=== PATIENT | female | born 1955 | race Caucasian/White ===

== ENCOUNTER 2019-05-25 05:11 | Inpatient (IN) ==
[2019-05-25] MEDS ORDERED: IPRATROPIUM/ALBUTEROL 3 ML AMPUL.NEB NEB ONE ×2 (05:19→08:20)
[2019-05-25] MEDS ORDERED: methylPREDNISolone SOD SUCC 125 MG/2 ML VIAL IV ONE (05:51)
--- NOTE | 2019-05-25 05:52 | XRay Report ---
CLINICAL INFORMATION: sob and fever COMPARISON: 06/20/2014 FINDINGS: Heart size, mediastinum and pulmonary vessels are normal. COPD changes are stable and there are no infiltrates or new pulmonary abnormalities. No effusions IMPRESSION: Stable COPD changes. Interpreted and Authenticated by: Esa Parker 05/25/19
[2019-05-25] MEDS ORDERED: AZITHROMYCIN 500 MG in DEXTROSE 5% IN WATER 250 ML IV ONE (05:53)
[2019-05-25] MEDS ORDERED: cefTRIAXone 1 GM VIAL IV ONE (05:53)
[2019-05-25] MEDS ORDERED: ALBUTEROL SULFATE 5 MG/ML NEB SOLUTION BOTTLE NEB ONE (05:59)
[2019-05-25 06:15] LABS: Hematocrit 32.7 % (36.0-48.0); Hemoglobin 9.8 g/dL (12.0-15.0); Mean Cell Volume 71.4 fL (80.0-100.0); Mean Corpuscular HGB Conc 29.8 g/dL (31.0-36.0); Platelet Count 375 K/mcL (140-440); RBC 4.58 M/mcL (4.00-5.20); Red Cell Distribution Width 19.6 % (11.5-14.5); WBC 11.3 K/mcL (4.5-11.0)
[2019-05-25] MEDS: LACTATED RINGERS 1,000 ML IV SCH ×2 (06:19→12:35)
--- NOTE | 2019-05-25 06:29 | Emergency Department Note ---
SOB HPI - General Chief Complaint: Shortness of Breath/Dyspnea Stated Complaint: sob Time Seen by Provider: 05/25/19 05:51 Source: patient Mode of arrival: EMS Limitations: no limitations - History of Present Illness This patient has a history of COPD and started having wheezing and shortness of breath during the night. She does have a low-grade temperature and feels warm. Has not had much cough. - Related Data Previous Rx's Medication Instructions Recorded Azithromycin [Zithromax] 250 mg PO DAILY #4 tab 05/25/19 predniSONE [Prednisone] 20 mg PO DAILY #23 tab 05/25/19 Allergies Allergy/AdvReac Type Severity Reaction Status Date / Time codeine [CODEINE] Allergy Unknown CANT BREATH Verified 05/25/19 05:22 starch Allergy Anaphylaxis Verified 05/25/19 05:22 Review of Systems All systems ED: reviewed and negative except as stated. Past Medical History - Past Medical History Medical history: Reports: COPD - Social History smoking status: Current every day smoker Physical Exam Limitations: no limitations General appearance: alert Head: atraumatic Eye: Present: normal appearance ENT: Present: normal exam Neck: Present: normal inspection Chest: Present: normal inspection Respiratory: Present: respiratory distress, wheezes, prolonged expiratory phase Cardiovascular: Present: regular rate, normal rhythm, normal heart sounds Abdominal: Present: soft. Absent: distention, tenderness Neurological: Present: alert Psychiatric: Present: normal affect Skin: Present: warm, dry Course Vital Signs Pulse Rate 115 H 05/25/19 05:12 Respiratory Rate 24 H 05/25/19 05:12 Pulse Oximetry (%) 93 05/25/19 05:12 Temperature 98.2 F 05/25/19 07:36 Pulse Rate 108 H 05/25/19 08:15 Respiratory Rate 25 H 05/25/19 08:31 Blood Pressure 151/80 05/25/19 08:31 Pulse Oximetry (%) 89 L 05/25/19 08:15 Shortness of Breath/Dyspnea - [facility] Narrative Medical decision making narrative: This patient is doing better after a heart neb and Solu-Medrol. Chest x-ray did not show pneumonia. She was treated with a Zithromax and Rocephin. This patient continues to be symptomatic short of breath with wheezing despite multiple treatments with O2 sats in the high 80s. I think she would benefit from admission of the hospital and will try to arrange that with Dr. Matute. - Lab Data Lab results reviewed: Yes I reviewed the patient's lab results. Result diagrams: 05/25/19 05:30 05/25/19 05:30 Lab Results 05/25/19 05/25/19 05/25/19 Range/Units 05:30 05:30 06:10 WBC 11.3 H (4.5-11.0) K/mcL RBC 4.58 (4.00-5.20) M/mcL Hgb 9.8 L (12.0-15.0) g/dL Hct 32.7 L (36.0-48.0) % MCV 71.4 L (80.0-100.0) fL MCH 21.3 L (26.0-34.0) pg MCHC 29.8 L (31.0-36.0) g/dL RDW 19.6 H (11.5-14.5) % Plt Count 375 (140-440) K/mcL MPV 7.0 L (7.4-10.4) fL Total Counted 100 Seg Neutrophils % 74 (38-78) % Band Neutrophils % Not Reportable Lymphocytes % 18 (15-49) % Monocytes % (Manual) 8 (1-12) % Platelet Estimate Normal (NORMAL) RBC Morphology Abnorm A (NORMAL) Polychromasia 1+ A (NONE SEEN) Hypochromasia 1+ A (NONE SEEN) Anisocytosis 1+ A (NONE SEEN) Microcytosis 2+ A (NONE SEEN) Ovalocytes 2+ A (NONE SEEN) RBC Fragments Rare A (NONE SEEN) VBG Lactic Acid 1.1 (0.5-2.0) mmol/L Sodium 143 (133-145) mmol/L Potassium 4.1 (3.3-5.1) mmol/L Chloride 97 (96-108) mmol/L Carbon Dioxide 35 H (22-30) mmol/L Anion Gap 11.0 (8-16) BUN 11 (8-23) mg/dl Creatinine 0.8 (0.6-1.1) mg/dl GFR Calculation 78 Glucose 103 (70-105) mg/dL Calcium 9.2 (8.6-10.4) mg/dl Total Bilirubin 0.3 (0.0-1.0) mg/dL AST 19 (0-37) U/l ALT 16 (0-40) U/l Alkaline Phosphatase 68 (39-117) U/L Total Protein 6.8 (5.9-8.4) gm/dL Albumin 4.1 (3.2-5.2) gm/dL Globulin 2.7 (2.2-3.7) gm/dL Albumin/Globulin Ratio 1.5 (1.0-2.3) - Radiology Data Radiology results reviewed: Yes I reviewed the patient's radiology results. Disposition Pt seen by [employer]/PA only: No Clinical Impression: Acute exacerbation of chronic obstructive airways disease Disposition: Xfer As Inpt ([facility]) Condition: Good Instructions: Chronic Obstructive Pulmonary Disease (ED) Prescriptions: predniSONE [Prednisone] 20 mg PO DAILY #23 tab Transmission Status: Received by [facility] Azithromycin [Zithromax] 250 mg PO DAILY #4 tab Transmission Status: Received by [facility] Referrals: Heavenly Enriquez MD [Primary Care Provider] - Time of Disposition: 08:46
[2019-05-25 06:32] LABS: ALT/SGPT 16 U/l (0-40); AST/SGOT 19 U/l (0-37); Albumin 4.1 gm/dL (3.2-5.2); Albumin/Globulin Ratio 1.5 (1.0-2.3); Alkaline Phosphatase 68 U/L (39-117); Bilirubin,Total 0.3 mg/dL (0.0-1.0); Blood Urea Nitrogen 11 mg/dl (8-23); Calcium 9.2 mg/dl (8.6-10.4); Carbon Dioxide 35 mmol/L (22-30); Chloride 97 mmol/L (96-108); Globulin 2.7 gm/dL (2.2-3.7); Glomerular Filtration Rate 78; Glucose 103 mg/dL (70-105)
[2019-05-25] MEDS ORDERED: ONDANSETRON 4 MG/2 ML VIAL IV ONE (06:42)
[2019-05-25 06:50] LABS: Anisocytosis 1+ (NONE SEEN); Hypochromasia 1+ (NONE SEEN); Lymphocytes % 18 % (15-49); Microcytosis 2+ (NONE SEEN); Monocytes % (Manual) 8 % (1-12); Ovalocytes 2+ (NONE SEEN); Platelet Estimate NORMAL (NORMAL); Polychromasia 1+ (NONE SEEN); RBC Fragments RARE (NONE SEEN); RBC Morphology ABNORM (NORMAL); Segmented Neutrophils % 74 % (38-78)
[2019-05-25] MEDS ORDERED: ACETAMINOPHEN 325 MG TABLET PO ONE (09:52)
--- NOTE | 2019-05-25 10:16 | Emergency Department Note ---
SOB HPI - General Chief Complaint: Shortness of Breath/Dyspnea Stated Complaint: sob Time Seen by Provider: 05/25/19 05:51 Source: patient Mode of arrival: EMS Limitations: no limitations - History of Present Illness See history and physical dictated by Dr. Mora, and I am seeing patient after change in shift. Probable admission for COPD exacerbation. I spoke with patient's daughter Triston, also. Patient has received Rocephin, Zithromax Solu- Medrol DuoNeb albuterol 10 mg, a third nebulizer treatment with DuoNeb. Venous blood gases include pH is 7.40 PCO2 62, PO2 76. She is still wheezing moderately throughout all lung horton. She is on 4 L running 90 to 92%. She has a low-grade temperature. She remains tachycardic in the 100-120 bpm range. Triston reports that her fever was 100.4 last evening and had some during the day yesterday. Patient lives with her at home. She has fairly good mentation. She does ambulate on her own but uses a walker for longer distance. She was down as low as 82 pounds and has recently gone back up to 98 with eating potatoes. She has a history of COPD. Chest x-ray demonstrates stable COPD. - Related Data Home Medications Medication Instructions Recorded Confirmed Albuterol Sulfate [Ventolin] 2.5 mg NEB Q4-6HP 05/25/19 05/25/19 Aspirin [Adult Aspirin Regimen] 81 mg PO DAILY 05/25/19 05/25/19 Benazepril [Lotensin] 20 mg PO DAILY 05/25/19 05/25/19 DULoxetine [Cymbalta] 90 mg PO DAILY 05/25/19 05/25/19 Fluticasone/Salmeterol [Advair 1 puff INH BID 05/25/19 05/25/19 250-50 Diskus] Furosemide [Lasix] 20 mg PO DAILY 05/25/19 05/25/19 Gabapentin [Neurontin] 800 mg PO TID 05/25/19 05/25/19 HYDROcodone/APAP 10/325MG [[place] 1 tab PO Q6H PRN 05/25/19 05/25/19 10-325Mg] Montelukast [Singular] 10 mg PO DAILY 05/25/19 05/25/19 Omeprazole [PriLOSEC] 20 mg PO ACB 05/25/19 05/25/19 Potassium Chloride [Kdur] 10 meq PO DAILY 05/25/19 05/25/19 Tiotropium [place] [Spiriva] 18 mcg INH DAILY 05/25/19 05/25/19 Allergies Allergy/AdvReac Type Severity Reaction Status Date / Time codeine [CODEINE] Allergy Unknown CANT BREATH Verified 05/25/19 05:22 starch Allergy Anaphylaxis Verified 05/25/19 05:22 Past Medical History - Past Medical History Medical history: Reports: COPD - Social History smoking status: Current every day smoker Physical Exam Limitations: no limitations General appearance: other (Sleeping but moving around easily and well.) Head: atraumatic, normocephalic Respiratory: Present: wheezes (Expiratory mild-moderate throughout all lung horton posteriorly.), prolonged expiratory phase. Absent: stridor Cardiovascular: Present: regular rate, tachycardia Extremities: Present: other (Somewhat atrophic.). Absent: pedal edema, preti bial edema Course Vital Signs Pulse Rate 115 H 05/25/19 05:12 Respiratory Rate 24 H 05/25/19 05:12 Pulse Oximetry (%) 93 05/25/19 05:12 Temperature 100.4 F H 05/25/19 09:57 Pulse Rate 103 H 05/25/19 10:16 Respiratory Rate 24 H 05/25/19 10:16 Blood Pressure 139/71 05/25/19 10:16 Pulse Oximetry (%) 94 05/25/19 10:16 Shortness of Breath/Dyspnea - MDM Narrative Medical decision making narrative: See history above. Patient continues with tachycardia, wheezing, low-grade temperature. Will need to be followed up additionally with monitoring and treatment inpatient. ABG demonstrates some CO2 retention. I discussed these results with Dr. Matute. 10:52 AM - I spoke with Dr. Matute, hospitalist, who kindly accepts this patient for additional treatment and follow-up inpatient for a COPD exacerbation. Procalcitonin added. - Lab Data Lab results reviewed: Yes I reviewed the patient's lab results. Result diagrams: 05/25/19 05:30 05/25/19 05:30 Lab Results 05/25/19 05/25/19 05/25/19 Range/Units 05:30 05:30 06:10 WBC 11.3 H (4.5-11.0) K/mcL RBC 4.58 (4.00-5.20) M/mcL Hgb 9.8 L (12.0-15.0) g/dL Hct 32.7 L (36.0-48.0) % MCV 71.4 L (80.0-100.0) fL MCH 21.3 L (26.0-34.0) pg MCHC 29.8 L (31.0-36.0) g/dL RDW 19.6 H (11.5-14.5) % Plt Count 375 (140-440) K/mcL MPV 7.0 L (7.4-10.4) fL Total Counted 100 Seg Neutrophils % 74 (38-78) % Band Neutrophils % Not Reportable Lymphocytes % 18 (15-49) % Monocytes % (Manual) 8 (1-12) % Platelet Estimate Normal (NORMAL) RBC Morphology Abnorm A (NORMAL) Polychromasia 1+ A (NONE SEEN) Hypochromasia 1+ A (NONE SEEN) Anisocytosis 1+ A (NONE SEEN) Microcytosis 2+ A (NONE SEEN) Ovalocytes 2+ A (NONE SEEN) RBC Fragments Rare A (NONE SEEN) VBG Lactic Acid 1.1 (0.5-2.0) mmol/L Sodium 143 (133-145) mmol/L Potassium 4.1 (3.3-5.1) mmol/L Chloride 97 (96-108) mmol/L Carbon Dioxide 35 H (22-30) mmol/L Anion Gap 11.0 (8-16) BUN 11 (8-23) mg/dl Creatinine 0.8 (0.6-1.1) mg/dl GFR Calculation 78 Glucose 103 (70-105) mg/dL Calcium 9.2 (8.6-10.4) mg/dl Total Bilirubin 0.3 (0.0-1.0) mg/dL AST 19 (0-37) U/l ALT 16 (0-40) U/l Alkaline Phosphatase 68 (39-117) U/L Total Protein 6.8 (5.9-8.4) gm/dL Albumin 4.1 (3.2-5.2) gm/dL Globulin 2.7 (2.2-3.7) gm/dL Albumin/Globulin Ratio 1.5 (1.0-2.3) - Radiology Data Radiology results reviewed: Yes I reviewed the patient's radiology results. - EKG Data EKG attestation: Yes There are no EKG findings of acute coronary syndrome, Yes This EKG will be read by sand slinger EKG results narrative: Possible previous anterior infarct. Disposition Pt seen by [employer]/PA only: No Clinical Impression: Acute exacerbation of chronic obstructive airways disease, Hypochromic microcytic anemia, Cachexia Fever Qualifiers: Fever type: due to other condition Qualified Code(s): R50.81 - Fever presenting with conditions classified elsewhere Disposition: Xfer As Inpt ([facility]) Condition: Good Instructions: Chronic Obstructive Pulmonary Disease (ED) Prescriptions: predniSONE [Prednisone] 20 mg PO DAILY #23 tab Transmission Status: Received by [facility] Azithromycin [Zithromax] 250 mg PO DAILY #4 tab Transmission Status: Received by [facility] Referrals: Heavenly Enriquez MD [Primary Care Provider] -
[2019-05-25] MEDS ORDERED: HYDROcodone/APAP 10/325MG TABLET PO PRN (10:56)
[2019-05-25] MEDS ORDERED: MAGNESIUM HYDROXIDE 30 ML ORAL.SUSP PO PRN (12:28)
[2019-05-25] MEDS ORDERED: ACETAMINOPHEN 650 MG/65 ML BOTTLE IV PRN (12:28)
[2019-05-25] MEDS ORDERED: ONDANSETRON 4 MG/2 ML VIAL IV PRN (12:28)
[2019-05-25] MEDS ORDERED: traZODone HCL 50 MG TABLET PO PRN (12:28)
[2019-05-25] MEDS ORDERED: MAGNESIUM SULFATE 2 GM/50 ML BAG IV PRN (12:28)
[2019-05-25] MEDS ORDERED: ACETAMINOPHEN 325 MG TABLET PO PRN (12:28)
[2019-05-25] MEDS ORDERED: POTASSIUM CHLORIDE 20 MEQ PACKET PO PRN (12:28)
[2019-05-25] MEDS: methylPREDNISolone SOD SUCC 125 MG/2 ML VIAL IV SCH ×3 (12:52→23:34)
[2019-05-25] MEDS ORDERED: cefTRIAXone 1 GM VIAL IV SCH (13:00)
[2019-05-25] MEDS: GABAPENTIN 400 MG CAPSULE PO SCH ×2 (13:04→20:38)
[2019-05-25] MEDS: 0.9 % SODIUM CHLORIDE 1,000 ML IV SCH (13:37)
[2019-05-25] MEDS: LEVOFLOXACIN 750 MG/150 ML BAG IV SCH (13:37)
[2019-05-25] MEDS ORDERED: ALBUTEROL SULFATE 2.5 MG/3 ML NEBULIZER ONE (13:38)
[2019-05-25] MEDS ORDERED: ALBUTEROL SULFATE 2.5 MG/3 ML NEBULIZER NEB PRN (13:39)
--- NOTE | 2019-05-25 13:52 | Internal Med History&Physical ---
Medical - H&P: [facility] Patient information: Note initiated : 05/25/19 at 1:49 pm Service Date, if different from initiated Date: [] Patient: Martha Allison a 64 y/o F admitted on 05/25/19 for sob. Chief Complaint: [] Chief complaint: Shortness of breath History of present illness: Ms. Allison is a 64 year old F with a known history of advanced COPD actively smoking half a pack a day on home oxygen who presents with 3 days onset of worsening shortness of breath along with cough and breathing. Patient endorses to both daughters sick with bronchitis. She endorses to yellow-green productive sputum with increasing purulence. She was initially short of breath on exertion which now has progressed at rest with significant orthopnea. She endorses loss of appetite along with low-grade fever without chills. She denies headache, photophobia but endorses to generalized body ache and malaise. She is fairly malnourished with a BMI of 19.2. She endorses to history of allergy to starch but of late has been eating a lot of potatoes and [place] fries to gain weight. Initial work-up in the ER was consistent with COPD exacerbation with tachycardia, tachypnea and fever. Chest imaging was consistent with COPD but otherwise no acute process. She was started on Solu-Medrol/broncho-dilators. P atient however did not demonstrate improvement in her symptoms. Subsequently hospitalist service was consulted. At the time of evaluation patient is accompanied with 2 daughters Lynnette and Sandy. They were able to answer most of the questions. Patient is fairly short of breath sitting up in bed. She endorses to history as above. Her last COPD flare was a year ago for which she was hospitalized. She has been on mechanical ventilation few years ago for COPD flare. Intermittently she has had exacerbations that was treated outpatient on oral prednisone. Review of systems A 10 point review of system was performed and is negative except was discussed above Medical - H&P: PM Medical history: History of COPD oxygen dependent Active smoker Hypertension Neuropathy GERD Anxiety disorder Severe malnutrition Social history: Lives in [place] along with her daughter Actively smokes half pack \No history of alcohol s Smoking status: Current every day smoker Have you smoked in the last 12 months: Yes Time spent discussing smoking cessation with patient: 3 to 10 minutes Drug use: none Alcohol use: none Medical - H&P: Meds Home Medications Medication Instructions Recorded Confirmed Type Albuterol Sulfate [Ventolin] 2.5 mg NEB Q4-6HP 05/25/19 05/25/19 History Aspirin [Adult Aspirin Regimen] 81 mg PO DAILY 05/25/19 05/25/19 History Benazepril [Lotensin] 20 mg PO DAILY 05/25/19 05/25/19 History DULoxetine [Cymbalta] 90 mg PO DAILY 05/25/19 05/25/19 History Fluticasone/Salmeterol [Advair 1 puff INH BID 05/25/19 05/25/19 History 250-50 Diskus] Furosemide [Lasix] 20 mg PO DAILY 05/25/19 05/25/19 History Gabapentin [Neurontin] 800 mg PO TID 05/25/19 05/25/19 History HYDROcodone/APAP 10/325MG [[place] 1 tab PO Q6H PRN 05/25/19 05/25/19 History 10-325Mg] Montelukast [Singular] 10 mg PO DAILY 05/25/19 05/25/19 History Omeprazole [PriLOSEC] 20 mg PO ACB 05/25/19 05/25/19 History Potassium Chloride [Kdur] 10 meq PO DAILY 05/25/19 05/25/19 History Tiotropium [place] [Spiriva] 18 mcg INH DAILY 05/25/19 05/25/19 History Allergies Allergy/AdvReac Type Severity Reaction Status Date / Time codeine [CODEINE] Allergy Unknown CANT BREATH Verified 05/25/19 05:22 starch Allergy Anaphylaxis Verified 05/25/19 05:22 Medical - H&P: Exam - Constitutional Vitals: Temp Pulse Resp BP Pulse Ox 100.4 F H 100 H 22 139/71 94 05/25/19 12:31 05/25/19 13:41 05/25/19 13:41 05/25/19 12:31 05/25/19 12:31 General appearance: moderate distress Exam: Head normocephalic Oral cavity dry Temporal wasting No ear nose discharge Neck no lymphadenopathy S1-S2 regular rhythm ESM grade 1 Diminished breath sounds/expiratory rhonchi/barrel chest Scaphoid abdomen Nontender nondistended Lower extremity no sinus clubbing no joint swelling Skin no suspicious lesion Psych alert cooperative Neuro nonfocal Medical - H&P: Reslt - Labs CBC & Chem 7: 05/25/19 05:30 05/25/19 05:30 Labs: Short CBC 05/25/19 Range/Units 05:30 WBC 11.3 H (4.5-11.0) K/mcL Hgb 9.8 L (12.0-15.0) g/dL Hct 32.7 L (36.0-48.0) % Plt Count 375 (140-440) K/mcL BMP 05/25/19 05:30 Sodium 143 Potassium 4.1 Chloride 97 Carbon Dioxide 35 H BUN 11 Creatinine 0.8 Glucose 103 Calcium 9.2 Liver Function 05/25/19 Range/Units 05:30 Total Bilirubin 0.3 (0.0-1.0) mg/dL AST 19 (0-37) U/l ALT 16 (0-40) U/l Alkaline Phosphatase 68 (39-117) U/L Albumin 4.1 (3.2-5.2) gm/dL Medical - H&P: A/P (1) Acute exacerbation of chronic obstructive airways disease Current visit: Yes Status: Acute * Acute exacerbation of COPD-initiate IV steroids/bronchodilators/noninvasive ventilation as indicated. Continue pulmonary toilet * Hypoxic respiratory failure with dyspnea secondary to above. Continue supplemental oxygen/noninvasive ventilation if indicated * History of hypertension continue RAISA inhibitor * GERD continue PPI * Neuropathy continue gabapentin * Anxiety disorder continue duloxetine * Tobacco dependence start nicotine patch * Full code * Prophylaxis heparin Plan * Inpatient admission * COPD exacerbation management per guidelines, noninvasive ventilation if indicated * Prior medical condition management home meds * PT OT/nutrition support * Discharge planning
[2019-05-25] MEDS ORDERED: ASPIRIN 81 MG TAB.CHEW CHEWED ONE (13:57)
[2019-05-25] MEDS ORDERED: FUROSEMIDE 20 MG TABLET PO ONE (13:59)
[2019-05-25] MEDS ORDERED: DULoxetine 30 MG CAPSULE PO ONE (13:59)
[2019-05-25] MEDS ORDERED: MONTELUKAST 10 MG TABLET PO ONE (13:59)
[2019-05-25] MEDS ORDERED: THIAMINE 100 MG TABLET PO ONE (14:01)
[2019-05-25] MEDS ORDERED: LISINOPRIL 10 MG TABLET PO ONE (14:02)
[2019-05-25] MEDS: IPRATROPIUM/ALBUTEROL 3 ML AMPUL.NEB NEB SCH ×4 (14:40→23:11)
[2019-05-25] MEDS: HYDROcodone/APAP 10/325MG TABLET PO PRN ×2 (14:45→20:39)
[2019-05-25] MEDS: 0.9 % SODIUM CHLORIDE 10 ML SYRINGE IV SCH ×2 (14:47→20:40)
[2019-05-25] MEDS ORDERED: GABAPENTIN 400 MG CAPSULE PO SCH (15:00)
[2019-05-25] MEDS: NICOTINE 14 MG PATCH TOPICAL SCH (15:24)
[2019-05-25] MEDS: BUDESONIDE 0.5 MG/2 ML AMPUL.NEB NEB SCH (19:08)
[2019-05-25] MEDS: DOCUSATE SODIUM 100 MG CAPSULE PO SCH (20:39)
[2019-05-25] MEDS ORDERED: SENNOSIDES/DOCUSATE SODIUM 1 TAB TABLET PO SCH (21:00)
[2019-05-26] MEDS: IPRATROPIUM/ALBUTEROL 3 ML AMPUL.NEB NEB SCH ×2 (02:56→06:59)
[2019-05-26] MEDS: 0.9 % SODIUM CHLORIDE 10 ML SYRINGE IV SCH ×3 (05:13→20:24)
[2019-05-26] MEDS: methylPREDNISolone SOD SUCC 125 MG/2 ML VIAL IV SCH ×3 (05:13→18:08)
[2019-05-26 05:48] LABS: Hemoglobin 8.9 g/dL (12.0-15.0); Mean Cell Volume 70.7 fL (80.0-100.0); Mean Corpuscular HGB Conc 29.8 g/dL (31.0-36.0); Mean Platelet Volume 7.4 fL (7.4-10.4); Platelet Count 321 K/mcL (140-440); RBC 4.24 M/mcL (4.00-5.20); Red Cell Distribution Width 19.5 % (11.5-14.5); WBC 8.9 K/mcL (4.5-11.0)
[2019-05-26] MEDS: BUDESONIDE 0.5 MG/2 ML AMPUL.NEB NEB SCH (06:59)
[2019-05-26 07:04] LABS: ALT/SGPT 13 U/l (0-40); AST/SGOT 17 U/l (0-37); Albumin 3.7 gm/dL (3.2-5.2); Albumin/Globulin Ratio 1.5 (1.0-2.3); Alkaline Phosphatase 56 U/L (39-117); Bilirubin,Direct < 0.2 mg/dL (0.0-0.3); Bilirubin,Total 0.2 mg/dL (0.0-1.0); Blood Urea Nitrogen 12 mg/dl (8-23); Carbon Dioxide 30 mmol/L (22-30); Chloride 99 mmol/L (96-108); Globulin 2.5 gm/dL (2.2-3.7); Glucose 122 mg/dL (70-105); Lactate Dehydrogenase 220 U/L (94-250); Phosphorous 3.8 mg/dL (2.7-4.5); Triglycerides 57 mg/dl (<150); Uric Acid 3.5 mg/dL (2.5-8.0)
[2019-05-26 07:11] LABS: Glomerular Filtration Rate 103
[2019-05-26] MEDS ORDERED: OMEPRAZOLE 20 MG CAPSULE PO SCH ×2 (07:30)
[2019-05-26] MEDS ORDERED: cefTRIAXone 2 GM in DEXTROSE 5% IN WATER 50 ML IV SCH (08:00)
[2019-05-26] MEDS ORDERED: POTASSIUM CHLORIDE 10 MEQ TABLET PO SCH ×2 (08:00)
[2019-05-26] MEDS: DOCUSATE SODIUM 100 MG CAPSULE PO SCH ×2 (08:21→20:24)
[2019-05-26] MEDS: GABAPENTIN 400 MG CAPSULE PO SCH ×3 (08:23→20:23)
[2019-05-26] MEDS: 0.9 % SODIUM CHLORIDE 1,000 ML IV SCH (08:32)
[2019-05-26 08:38] LABS: Acanthocytes 1+ (NONE SEEN); Anisocytosis 1+ (NONE SEEN); Band Neutrophils % 1 % (0-10); Hypochromasia 1+ (NONE SEEN); Lymphocytes % 5 % (15-49); Microcytosis 2+ (NONE SEEN); Monocytes % (Manual) 2 % (1-12); Ovalocytes 1+ (NONE SEEN); Platelet Estimate NORMAL (NORMAL); RBC Morphology ABNORM (NORMAL); Segmented Neutrophils % 92 % (38-78)
[2019-05-26] MEDS ORDERED: FUROSEMIDE 20 MG TABLET PO SCH ×2 (09:00)
[2019-05-26] MEDS ORDERED: BENAZEPRIL 10 MG TABLET PO SCH ×2 (09:00)
[2019-05-26] MEDS ORDERED: MONTELUKAST 10 MG TABLET PO SCH ×2 (09:00)
[2019-05-26] MEDS ORDERED: ASPIRIN 81 MG TAB.CHEW PO SCH ×2 (09:00)
[2019-05-26] MEDS ORDERED: MULTIVIT,THER IRON,CA,FA & MIN 1 TABLET PO SCH (09:00)
[2019-05-26] MEDS ORDERED: DULoxetine 30 MG CAPSULE PO SCH ×2 (09:00)
[2019-05-26] MEDS ORDERED: HEPARIN 5,000 UNIT/ML VIAL SQ SCH (09:00)
[2019-05-26] MEDS ORDERED: LISINOPRIL 10 MG TABLET PO SCH (09:00)
[2019-05-26] MEDS ORDERED: THIAMINE 100 MG TABLET PO SCH (09:00)
[2019-05-26] MEDS: LEVOFLOXACIN 750 MG/150 ML BAG IV SCH (09:28)
[2019-05-26] MEDS: NICOTINE 14 MG PATCH TOPICAL SCH (12:22)
[2019-05-26] MEDS: HYDROcodone/APAP 10/325MG TABLET PO PRN ×2 (14:29→20:23)
--- NOTE | 2019-05-26 14:41 | Internal Med Progress Note ---
Medical - PN: Subj Patient information: Note initiated : 05/26/19 at 2:39 pm Service Date, if different from initiated Date: [] Patient: Martha Allison a 64 y/o F admitted on 05/25/19 for sob. Chief Complaint: [] Interval history: Ms. Allison is a 64 year old F with a known history of advanced COPD actively smoking half a pack a day on home oxygen who presents with 3 days onset of worsening shortness of breath along with cough and breathing. Patient endorses to both daughters sick with bronchitis. She endorses to yellow-green productive sputum with increasing purulence. She was initially short of breath on e xertion which now has progressed at rest with significant orthopnea. She endorses loss of appetite along with low-grade fever without chills. She denies headache, photophobia but endorses to generalized body ache and malaise. She is fairly malnourished with a BMI of 19.2. She endorses to history of allergy to starch but of late has been eating a lot of potatoes and [place] fries to gain weight. Initial work-up in the ER was consistent with COPD exacerbation with tachycardia, tachypnea and fever. Chest imaging was consistent with COPD but otherwise no acute process. She was started on Solu-Medrol/broncho-dilators. Patient however did not demonstrate improvement in her symptoms. Subsequently hospitalist service was consulted. At the time of evaluation patient is accompanied with 2 daughters Lynnette and Sandy. They were able to answer most of the questions. Patient is fairly short of breath sitting up in bed. She endorses to history as above. Her last COPD flare was a year ago for which she was hospitalized. She has been on mechanical ventilation few years ago for COPD flare. Intermittently she has had exacerbations that was treated outpatient on oral prednisone. 05/26-patient gradually improving. On steroids and bronchodilators. On 4 L oxygen. Ambulating and tolerating diet. Did not require BiPAP. Anticipate discharge in 24 hours on continue antibiotics/steroids. No overnight fever chills or concerns per staff. - Constitutional Vitals: Vital Signs Temp Pulse Resp BP Pulse Ox 97.7 F 96 H 22 174/83 97 05/26/19 12:00 05/26/19 12:00 05/26/19 12:00 05/26/19 12:00 05/26/19 12:00 Period Temp Pulse Resp BP Sys/Teague Pulse Ox Last 24 Hr 96.9 F-99 F 83-98 18-24 134-174/59-84 93-100 Intake and Output 05/26/19 05/26/19 05/26/19 05:59 13:59 21:59 Intake Total 780 1149 Output Total 950 900 Balance -170 249 Weight 101 lb Patient Weight 05/27/19 05:59 Weight 101 lb Intake & Output: Intake & Output 05/26/19 05/26/19 05/26/19 05:59 13:59 21:59 Intake Total 780 1149 Output Total 950 900 Balance -170 249 Weight 101 lb Intake: IV 1099 Sodium Chloride 0.9% 1,000 ml @ 946 50 mls/hr IV .Q20H JOSE Rx#: [id number] Rocephin 2 gm In Dextrose 5% in 50 Water 50 ml @ 100 mls/hr IV Q24H JOSE Rx#:[id number] Oral 780 50 Output: Void Amount 950 900 Other: Urine Appearance Clear Clear Urine Color Bright Yellow Pale Urine Odor Normal General appearance: thin Exam: Barrel chest Expiratory rhonchi Anxious On 4 L oxygen No edema Medical - PN: Obj Da - Labs CBC & Chem 7: 05/26/19 03:46 05/26/19 03:46 Labs: Abnormal Lab Results 05/26/19 05/26/19 05/25/19 03:46 03:46 05:30 WBC Hgb 8.9 L Hct 30.0 L MCV 70.7 L MCH 21.1 L MCHC 29.8 L RDW 19.5 H MPV Seg Neutrophils % 92 H Lymphocytes % 5 L RBC Morphology Abnorm A Polychromasia Hypochromasia 1+ A Anisocytosis 1+ A Microcytosis 2+ A Ovalocytes 1+ A Acanthocytes (Spur) 1+ A RBC Fragments Carbon Dioxide Creatinine 0.5 L Glucose 122 H Ferritin 18.5 L 05/25/19 05/25/19 05:30 05:30 WBC 11.3 H Hgb 9.8 L Hct 32.7 L MCV 71.4 L MCH 21.3 L MCHC 29.8 L RDW 19.6 H MPV 7.0 L Seg Neutrophils % Lymphocytes % RBC Morphology Abnorm A Polychromasia 1+ A Hypochromasia 1+ A Anisocytosis 1+ A Microcytosis 2+ A Ovalocytes 2+ A Acanthocytes (Spur) RBC Fragments Rare A Carbon Dioxide 35 H Creatinine Glucose Ferritin Meds: Medications Acetaminophen (Tylenol) 650 mg PO Q4-6HP PRN; Protocol PRN Reason: Per Pain Protocol/Fever > 101 Hydrocodone Bitart/Acetaminophen ([place] 10/325mg) 1 tab PO Q6H PRN; Protocol PRN Reason: Pain Last Admin: 05/26/19 14:29 Dose: 1 tab Documented by: Albuterol Sulfate (Ventolin) 2.5 mg NEB Q2HP PRN PRN Reason: Shortness Of Breath Last Admin: 05/26/19 12:34 Dose: 2.5 mg Documented by: Aspirin (Aspirin) 81 mg PO DAILY [facility] Last Admin: 05/26/19 08:19 Dose: 81 mg Documented by: Docusate Sodium (Colace) 100 mg PO BID [facility] Last Admin: 05/26/19 08:21 Dose: Not Given Documented by: Duloxetine HCl (Cymbalta) 90 mg PO DAILY [facility] Last Admin: 05/26/19 08:14 Dose: 90 mg Documented by: Furosemide (Lasix) 20 mg PO DAILY [facility] Last Admin: 05/26/19 08:20 Dose: 20 mg Documented by: Gabapentin (Neurontin) 800 mg PO TID [facility] Last Admin: 05/26/19 14:29 Dose: 800 mg Documented by: Heparin Sodium (Porcine) (Heparin) 5,000 unit SQ Q12 [facility] Last Admin: 05/26/19 12:22 Dose: 5,000 unit Documented by: Sodium Chloride (Sodium Chloride 0.9%) 1,000 mls @ 50 mls/hr IV .Q20H [facility] Stop: 05/28/19 00:27 Last Admin: 05/26/19 08:32 Dose: 50 mls/hr Documented by: Acetaminophen (Ofirmev) 650 mg in 65 mls @ 130 mls/hr IV Q6HP PRN; Protocol PRN Reason: Per Pain Protocol/Fever > 101 Magnesium Sulfate (Magnesium Sulfate) 2 gm in 50 mls @ 50 mls/hr IV UD PRN PRN Reason: MG = or < 1.7 Levofloxacin (Levaquin) 750 mg in 150 mls @ 100 mls/hr IV Q24H [facility]; Protocol Last Infusion: 05/26/19 10:30 Dose: 100 mls/hr Documented by: Ceftriaxone Sodium 2 gm/ (Dextrose) 50 mls @ 100 mls/hr IV Q24H [facility]; Protocol Last Infusion: 05/26/19 09:27 Dose: Infused Documented by: Iron Carb/Multivit/[place]/Folic Acid (Multivitamin W/Minerals) 1 tab PO DAILY [facility] Last Admin: 05/26/19 08:20 Dose: 1 tab Documented by: Lisinopril (Zestril) 10 mg PO DAILY [facility] Last Admin: 05/26/19 08:20 Dose: 10 mg Documented by: Magnesium Hydroxide (Milk Of Magnesia) 30 ml PO HSP PRN PRN Reason: Constipation Methylprednisolone Sodium Succinate (Solu-Medrol) 60 mg IV Q6 [facility] Last Admin: 05/26/19 12:27 Dose: 60 mg Documented by: Montelukast Sodium (Singular) 10 mg PO DAILY [facility] Last Admin: 05/26/19 08:18 Dose: 10 mg Documented by: Nicotine (Nicoderm) 14 mg TOPICAL DAILY@1000 [facility] Last Admin: 05/26/19 12:22 Dose: 14 mg Documented by: Omeprazole (Prilosec) 20 mg PO ACB [facility] Last Admin: 05/26/19 08:22 Dose: 20 mg Documented by: Ondansetron HCl (Zofran) 4 mg IV Q4-6HP PRN; Protocol PRN Reason: Nausea And Vomiting Potassium Chloride (Kdur) 10 meq PO QAMCC [facility] Last Admin: 05/26/19 08:19 Dose: 10 meq Documented by: Potassium Chloride (Klor-Con) 40 meq PO DAILYP PRN PRN Reason: K+ < 3.5 Fluticasone/Salmeterol (Advair 250-50 Diskus) 1 puff INH BID [facility] Senna/Docusate Sodium (Senna Plus Tablet) 1 tab PO HS [facility] Last Admin: 05/25/19 20:40 Dose: Not Given Documented by: Sodium Chloride (Saline Flush) 10 ml IV Q8 [facility] Last Admin: 05/26/19 14:25 Dose: Not Given Documented by: Thiamine HCl (Vitamin B1) 100 mg PO DAILY [facility] Last Admin: 05/26/19 08:17 Dose: 100 mg Documented by: Tiotropium [place] (Spiriva) 18 mcg INH DAILY [facility] Trazodone HCl (Desyrel) 50 mg PO HSP PRN PRN Reason: Insomnia Medical - PN: A/P - Time Spent With Patient Total time spent is greater than 50% in coordination of care (as documented) at patient's floor/unit and/or counseling patient: 15 - 24 minutes (1) Acute exacerbation of chronic obstructive airways disease Status: Acute Assessment and plan: * Acute exacerbation of COPD-clinically improving. Continue IV steroids/bronchodilators * Hypoxic respiratory failure with dyspnea secondary to above. On 4 L oxygen. * History of hypertension continue RAISA inhibitor * GERD continue PPI * Neuropathy continue gabapentin * Anxiety disorder continue duloxetine * Tobacco dependence continue nicotine patch * Full code * Prophylaxis heparin Plan * Continue steroids and rhonchi dilators * Nutrition support/therapy * Prior medical condition management home meds * Possible discharge in 24 hours Current Visit: Yes Medical - PN: Qual - VTE Deep Vein Thrombosis/Pulmonary Embolism Present on Admission: No
[2019-05-26] MEDS ORDERED: traZODone HCL 50 MG TABLET PO PRN (15:14)
[2019-05-26] MEDS ORDERED: POTASSIUM CHLORIDE 20 MEQ PACKET PO PRN (15:14)
[2019-05-26] MEDS ORDERED: 0.9 % SODIUM CHLORIDE 1,000 ML IV SCH (15:14)
[2019-05-26] MEDS ORDERED: ONDANSETRON 4 MG/2 ML VIAL IV PRN (15:14)
[2019-05-26] MEDS ORDERED: ACETAMINOPHEN 325 MG TABLET PO PRN (15:14)
[2019-05-26] MEDS ORDERED: ACETAMINOPHEN 650 MG/65 ML BOTTLE IV PRN (15:14)
[2019-05-26] MEDS ORDERED: MAGNESIUM HYDROXIDE 30 ML ORAL.SUSP PO PRN (15:14)
[2019-05-26] MEDS ORDERED: MAGNESIUM SULFATE 2 GM/50 ML BAG IV PRN (15:14)
[2019-05-26] MEDS: ALBUTEROL SULFATE 2.5 MG/3 ML NEBULIZER NEB PRN ×2 (19:02→23:25)
[2019-05-26] MEDS: HEPARIN 5,000 UNIT/ML VIAL SQ SCH (20:23)
[2019-05-26] MEDS: SENNOSIDES/DOCUSATE SODIUM 1 TAB TABLET PO SCH (20:25)
[2019-05-26] MEDS: FLUTICASONE/SALMETEROL 250/50 INHALER #14 INH SCH (20:25)
[2019-05-26] MEDS ORDERED: FLUTICASONE/SALMETEROL 250/50 INHALER #14 INH SCH (21:00)
[2019-05-27] MEDS: methylPREDNISolone SOD SUCC 125 MG/2 ML VIAL IV SCH ×4 (00:48→18:06)
[2019-05-27] MEDS: 0.9 % SODIUM CHLORIDE 10 ML SYRINGE IV SCH ×3 (05:14→22:17)
[2019-05-27 06:36] LABS: ALT/SGPT 16 U/l (0-40); AST/SGOT 23 U/l (0-37); Albumin 3.9 gm/dL (3.2-5.2); Albumin/Globulin Ratio 1.4 (1.0-2.3); Alkaline Phosphatase 65 U/L (39-117); Bilirubin,Direct < 0.2 mg/dL (0.0-0.3); Bilirubin,Total 0.2 mg/dL (0.0-1.0); Blood Urea Nitrogen 14 mg/dl (8-23); Calcium 9.3 mg/dl (8.6-10.4); Carbon Dioxide 27 mmol/L (22-30); Chloride 98 mmol/L (96-108); Globulin 2.8 gm/dL (2.2-3.7); Glomerular Filtration Rate 97; Glucose 124 mg/dL (70-105); Lactate Dehydrogenase 317 U/L (94-250); Phosphorous 3.9 mg/dL (2.7-4.5); Triglycerides 97 mg/dl (<150); Uric Acid 3.2 mg/dL (2.5-8.0)
--- NOTE | 2019-05-27 08:01 | XRay Report ---
HISTORY: Shortness of breath, COPD FINDINGS: Lungs are hyperinflated and there is mild pulmonary fibrosis due to COPD. There is no evidence of pneumonia, mass or congestive heart failure. The heart size is normal. Central airways are clear. Postoperative changes are present in the thoracic and lumbar spine. Old healed fracture is seen posterolaterally in the right sixth rib. There has been no significant change since 05/25/19. IMPRESSION: Stable COPD and no acute abnormality Interpreted and Authenticated by: Jcarlos Archibald 05/27/19
[2019-05-27 08:20] LABS: Anisocytosis 2+ (NONE SEEN); Band Neutrophils % 2 % (0-10); Hypochromasia 2+ (NONE SEEN); Lymphocytes % 4 % (15-49); Microcytosis 2+ (NONE SEEN); Monocytes % (Manual) 4 % (1-12); Ovalocytes 1+ (NONE SEEN); Platelet Estimate NORMAL (NORMAL); Poikilocytosis 2+ (NONE SEEN); Polychromasia 1+ (NONE SEEN); RBC Fragments OCC (NONE SEEN); RBC Morphology ABNORM (NORMAL); Reactive Lymphocytes 1 % (0-2); Segmented Neutrophils % 89 % (38-78)
[2019-05-27] MEDS ORDERED: TIOTROPIUM BROMIDE 18 MCG INHALANT INH SCH (09:00)
[2019-05-27] MEDS ORDERED: LISINOPRIL 10 MG TABLET PO SCH (09:00)
[2019-05-27] MEDS: DULoxetine 30 MG CAPSULE PO SCH (09:32)
[2019-05-27] MEDS: MONTELUKAST 10 MG TABLET PO SCH (09:32)
[2019-05-27] MEDS: MULTIVIT,THER IRON,CA,FA & MIN 1 TABLET PO SCH (09:32)
[2019-05-27] MEDS: OMEPRAZOLE 20 MG CAPSULE PO SCH (09:32)
[2019-05-27] MEDS: THIAMINE 100 MG TABLET PO SCH (09:33)
[2019-05-27] MEDS: GABAPENTIN 400 MG CAPSULE PO SCH ×3 (09:33→21:18)
[2019-05-27] MEDS: POTASSIUM CHLORIDE 10 MEQ TABLET PO SCH (09:34)
[2019-05-27] MEDS: FUROSEMIDE 20 MG TABLET PO SCH (09:34)
[2019-05-27] MEDS: ASPIRIN 81 MG TAB.CHEW PO SCH (09:34)
[2019-05-27] MEDS: HEPARIN 5,000 UNIT/ML VIAL SQ SCH ×2 (09:35→21:18)
[2019-05-27] MEDS: DOCUSATE SODIUM 100 MG CAPSULE PO SCH ×2 (09:35→21:06)
[2019-05-27] MEDS: FLUTICASONE/SALMETEROL 250/50 INHALER #14 INH SCH ×2 (09:43→21:19)
[2019-05-27] MEDS: TIOTROPIUM BROMIDE 18 MCG INHALANT INH SCH (09:43)
--- NOTE | 2019-05-27 09:48 | Discharge Summary ---
Medical - DS: Prov Patient information: Note initiated : 05/27/19 at 9:46 am Service Date, if different from initiated Date: [] Patient: Matrha Allison 64 y/o F admitted on 05/25/19 for sob. Chief Complaint: [] Date of admission: 05/25/19 12:25 Discharge date: 05/27/19 Primary care physician: Heavenly Enriquez Consults: 05/25/19 10:46 Consult to Physician [CONS] Stat Comment: Consulting Provider: Melo Baca Reason For Exam: Physician to Consult Medical - DS: Meds - Discharge Medications Prescriptions: predniSONE [Deltasone] 40 mg PO DAILY #10 tab Transmission Status: Pending to [facility] Levofloxacin [Levaquin] 500 mg PO DAILY #3 tab Transmission Status: Pending to [facility] Active and Home Medications: Home Medications Albuterol Sulfate [Ventolin] 2.5 mg NEB Q4-6HP 05/25/19 [History Confirmed 05/25/19 Last Taken 05/24/19] Aspirin [Adult Aspirin Regimen] 81 mg PO DAILY 05/25/19 [History Confirmed 05/25/19 Last Taken 05/24/19] Benazepril [Lotensin] 20 mg PO DAILY 05/25/19 [History Confirmed 05/25/19 Last Taken 05/24/19] DULoxetine [Cymbalta] 90 mg PO DAILY 05/25/19 [History Confirmed 05/25/19 Last Taken 05/24/19] Fluticasone/Salmeterol [Advair 250-50 Diskus] 1 puff INH BID 05/25/19 [History Confirmed 05/25/19 Last Taken 05/24/19] Furosemide [Lasix] 20 mg PO DAILY 05/25/19 [History Confirmed 05/25/19 Last Taken 05/24/19] Gabapentin [Neurontin] 800 mg PO TID 05/25/19 [History Confirmed 05/25/19 Last Taken 05/24/19] HYDROcodone/APAP 10/325MG [[place] 10-325Mg] 1 tab PO Q6H PRN 05/25/19 [History Confirmed 05/25/19 Last Taken 05/24/19] Montelukast [Singular] 10 mg PO DAILY 05/25/19 [History Confirmed 05/25/19 Last Taken 05/24/19] Omeprazole [Prilosec] 20 mg PO ACB 05/25/19 [History Confirmed 05/25/19 Last Taken 05/24/19] Potassium Chloride [Kdur] 10 meq PO DAILY 05/25/19 [History Confirmed 05/25/19 Last Taken 05/24/19] Tiotropium [place] [Spiriva] 18 mcg INH DAILY 05/25/19 [History Confirmed 05/25/19 Last Taken 05/24/19] Levofloxacin [Levaquin] 500 mg PO DAILY #3 tab 05/27/19 [Rx Last Taken Unknown] predniSONE [Deltasone] 40 mg PO DAILY #10 tab 05/27/19 [Rx Last Taken Unknown] Medical - DS: Hosp Hospital Course: Discharge diagnosis * Acute exacerbation of COPD-clinically improving. Continue IV steroids/bronchodilators * Hypoxic respiratory failure with dyspnea secondary to above. On 4 L oxygen. * History of hypertension continue RAISA inhibitor * GERD continue PPI * Neuropathy continue gabapentin * Anxiety disorder continue duloxetine * Tobacco dependence continue nicotine patch Brief hospital course Ms. Allison is a 64 year old F with a known history of advanced COPD actively smoking half a pack a day on home oxygen who presents with 3 days onset of worsening shortness of breath along with cough and breathing. Patient endorses to both daughters sick with bronchitis. She endorses to yellow-green productive sputum with increasing purulence. She was initially short of breath on exertion which now has progressed at rest with significant orthopnea. She endorses loss of appetite along with low-grade fever without chills. She denies headache, photophobia but endorses to generalized body ache and malaise. She is fairly malnourished with a BMI of 19.2. She endorses to history of allergy to starch but of late has been eating a lot of potatoes and [place] fries to gain weight. Initial work-up in the ER was consistent with COPD exacerbation with tachycardia, tachypnea and fever. Chest imaging was consistent with COPD but otherwise no acute process. She was started on Solu-Medrol/broncho-dilators. Patient however did not demonstrate improvement in her symptoms. Subsequently hospitalist service was consulted. At the time of evaluation patient is accompanied with 2 daughters Lynnette and Sandy. They were able to answer most of the questions. Patient is fairly short of breath sitting up in bed. She endorses to history as above. Her last COPD flare was a year ago for which she was hospitalized. She has been on mechanical ventilation few years ago for COPD flare. Intermittently she has had exacerbations that was treated outpatient on oral prednisone. 05/26-patient gradually improving. On steroids and bronchodilators. On 4 L oxygen. Ambulating and tolerating diet. Did not require BiPAP. Anticipate discharge in 24 hours on continue antibiotics/steroids. No overnight fever chills or concerns per staff. 05/27-patient doing well. No overnight events. Requesting discharge. Feels a lot better. New prednisone 40 mg for 5 days along with Levaquin for additional 3 days. Continue oxygen at home settings. Follow-up PCP in 5 to 7 days. Discharge diagnosis: . - Time Spent with Patient Total time spent providing and/or coordinating discharge services: Greater than 30 minutes Medical - DS: Exam - Constitutional Vitals: Vital Signs Temp Pulse Pulse Resp BP BP Pulse Ox 05/27/19 08:00 98.1 F 87 22 199/102 100 05/27/19 04:20 171/93 05/27/19 03:40 98.4 F 88 20 192/97 93 05/27/19 00:40 172/88 05/27/19 00:00 98.4 F 96 H 20 191/99 98 05/26/19 23:25 98 H 20 05/26/19 20:00 97.5 F 100 H 20 175/86 94 05/26/19 19:05 106 H 20 05/26/19 12:35 95 H 20 05/26/19 12:00 97.7 F 96 H 22 174/83 97 Intake and Output 05/26/19 05/27/19 05/27/19 21:59 05:59 13:59 Intake Total 920 780 Output Total 875 1375 Balance 45 -595 Intake: Oral 920 780 Output: Void Amount 875 1375 Other: Meal Dinner Percent of Meal Consumed 100% Urine Appearance Clear Urine Color Bright Yellow Weight 101 lb 4.8 oz Medical - DS: Data Labs on day of discharge: Labs from last 24 hours 05/27/19 05/27/19 04:00 04:00 WBC Pending RBC Pending Hgb Pending Hct Pending MCV Pending MCH Pending MCHC Pending RDW Pending Plt Count Pending MPV Pending Total Counted 100 Seg Neutrophils % 89 H Band Neutrophils % 2 Lymphocytes % 4 L Monocytes % (Manual) 4 Reactive Lymphocytes 1 Platelet Estimate Normal RBC Morphology Abnorm A Polychromasia 1+ A Hypochromasia 2+ A Poikilocytosis 2+ A Anisocytosis 2+ A Microcytosis 2+ A Ovalocytes 1+ A RBC Fragments Occ A Sodium 138 Potassium 4.4 Chloride 98 Carbon Dioxide 27 Anion Gap 13.0 BUN 14 Creatinine 0.6 GFR Calculation 97 Glucose 124 H Uric Acid 3.2 Calcium 9.3 Phosphorus 3.9 Magnesium 2.1 Total Bilirubin 0.2 Direct Bilirubin < 0.2 GGT 16 AST 23 ALT 16 Alkaline Phosphatase 65 Lactate Dehydrogenase 317 H Total Protein 6.7 Albumin 3.9 Globulin 2.8 Albumin/Globulin Ratio 1.4 Triglycerides 97 Preliminary micro results at discharge 05/25/19 06:10 Blood Culture - Preliminary Blood 05/25/19 06:05 Blood Culture - Preliminary Blood Medical - DS: A/P - Patient/Caregiver Discharge Instructions Activity: increase activity as tolerated Diet: Regular Diet Additional Instructions: Continue protein calorie supplements Continue steroids for 5 days continue antibiotics for 3 days Follow-up PCP in 5 to 7 days Refrain from smoking Return to ER if worsening fever chills shortness of breath Prescriptions: predniSONE [Deltasone] 40 mg PO DAILY #10 tab Transmission Status: Pending to [facility] Levofloxacin [Levaquin] 500 mg PO DAILY #3 tab Transmission Status: Pending to [facility] - Problem Maintenance (1) Acute exacerbation of chronic obstructive airways disease Status: Acute - Follow up Plan Follow up with: Gary Beckett ARNP [Physician] - 06/08/19 1:00 pm Disposition: Home, Self-Care Care Plan Goals: This discharge packet is provided to you to help keep you informed about your care. We want to ensure you get everything you need when you go home. You will also be receiving a call from us in a few days to follow up with you and see how you are doing since your discharge. This gives us a chance to listen to any concerns you maybe experiencing since you were discharged or any additional needs you may have, as well as providing us feedback on your care experience. We strive to always provide excellent care and thank you for your feedback and for choosing [facility]. Prognosis: Good Rehab Potential: Fair I certify that the patient requires SNF services: No Overall status at discharge: patient is progressing back to baseline Medical - DS: Qual - VTE Deep Vein Thrombosis/Pulmonary Embolism Present on Admission: No
[2019-05-27] MEDS: ALBUTEROL SULFATE 2.5 MG/3 ML NEBULIZER NEB PRN ×2 (10:42→19:15)
--- NOTE | 2019-05-27 10:54 | Internal Med Progress Note ---
Medical - PN: Subj Patient information: Note initiated : 05/27/19 at 10:51 am Service Date, if different from initiated Date: [] Patient: Martha Allison a 64 y/o F admitted on 05/25/19 for sob. Chief Complaint: [] Interval history: Ms. Allison is a 64 year old F with a known history of advanced COPD actively smoking half a pack a day on home oxygen who presents with 3 days onset of worsening shortness of breath along with cough and breathing. Patient endorses to both daughters sick with bronchitis. She endorses to yellow-green productive sputum with increasing purulence. She was initially short of breath on exertion which now has progressed at rest with significant orthopnea. She endorses loss of appetite along with low-grade fever without chills. She denies headache, photophobia but endorses to generalized body ache and malaise. She is fairly malnourished with a BMI of 19.2. She endorses to history of allergy to starch but of late has been eating a lot of potatoes and [place] fries to gain weight. Initial work-up in the ER was consistent with COPD exacerbation with tachycardia, tachypnea and fever. Chest imaging was consistent with COPD but otherwise no acute process. She was started on Solu-Medrol/broncho-dilators. Patient however did not demonstrate improvement in her symptoms. Subsequently hospitalist service was consulted. At the time of evaluation patient is accompanied with 2 daughters Lynnette and Sandy. They were able to answer most of the questions. Patient is fairly isacc rt of breath sitting up in bed. She endorses to history as above. Her last COPD flare was a year ago for which she was hospitalized. She has been on mechanical ventilation few years ago for COPD flare. Intermittently she has had exacerbations that was treated outpatient on oral prednisone. 05/26-patient gradually improving. On steroids and bronchodilators. On 4 L oxygen. Ambulating and tolerating diet. Did not require BiPAP. Anticipate discharge in 24 hours on continue antibiotics/steroids. No overnight fever chills or concerns per staff. 05/27-patient feeling better this morning and wanted to discharge however a couple of hours later became short of breath and feels that she is not quite ready and will benefit from an extra day of hospitalization. Continue existing treatment including steroids and bronchodilators. No overnight fever chills recommend discharging in 24 hours on oral prednisone with follow-up with PCP. - Constitutional Vitals: Vital Signs Temp Pulse Resp BP Pulse Ox 98.1 F 94 H 18 199/102 92 05/27/19 08:00 05/27/19 10:43 05/27/19 10:43 05/27/19 08:00 05/27/19 10:43 Period Temp Pulse Resp BP Sys/Teague Pulse Ox Last 24 Hr 97.5 F-98.4 F 87-106 18-22 171-199/83-102 92-100 Intake and Output 05/26/19 05/27/19 05/27/19 21:59 05:59 13:59 Intake Total 920 780 Output Total 875 1375 Balance 45 -595 Weight 101 lb 4.8 oz Intake & Output: Intake & Output 05/26/19 05/27/19 05/27/19 21:59 05:59 13:59 Intake Total 920 780 Output Total 875 1375 Balance 45 -595 Weight 101 lb 4.8 oz Intake: Oral 920 780 Output: Void Amount 875 1375 Other: Meal Dinner Percent of Meal Consumed 100% Urine Appearance Clear Urine Color Bright Yellow General appearance: no acute distress Exam: Anxious nonlabored Improved breath sounds Bilateral chest No lymphedema Significant muscle wasting Medical - PN: Obj Da - Labs CBC & Chem 7: 05/26/19 03:46 05/27/19 04:00 Labs: Abnormal Lab Results 05/27/19 05/27/19 05/26/19 04:00 04:00 03:46 WBC Hgb Hct MCV MCH MCHC RDW MPV Seg Neutrophils % 89 H Lymphocytes % 4 L RBC Morphology Abnorm A Polychromasia 1+ A Hypochromasia 2+ A Poikilocytosis 2+ A Anisocytosis 2+ A Microcytosis 2+ A Ovalocytes 1+ A Acanthocytes (Spur) RBC Fragments Occ A Carbon Dioxide Creatinine 0.5 L Glucose 124 H 122 H Ferritin Lactate Dehydrogenase 317 H 05/26/19 05/25/19 05/25/19 03:46 05:30 05:30 WBC Hgb 8.9 L Hct 30.0 L MCV 70.7 L MCH 21.1 L MCHC 29.8 L RDW 19.5 H MPV Seg Neutrophils % 92 H Lymphocytes % 5 L RBC Morphology Abnorm A Polychromasia Hypochromasia 1+ A Poikilocytosis Anisocytosis 1+ A Microcytosis 2+ A Ovalocytes 1+ A Acanthocytes (Spur) 1+ A RBC Fragments Carbon Dioxide 35 H Creatinine Glucose Ferritin 18.5 L Lactate Dehydrogenase 05/25/19 05:30 WBC 11.3 H Hgb 9.8 L Hct 32.7 L MCV 71.4 L MCH 21.3 L MCHC 29.8 L RDW 19.6 H MPV 7.0 L Seg Neutrophils % Lymphocytes % RBC Morphology Abnorm A Polychromasia 1+ A Hypochromasia 1+ A Poikilocytosis Anisocytosis 1+ A Microcytosis 2+ A Ovalocytes 2+ A Acanthocytes (Spur) RBC Fragments Rare A Carbon Dioxide Creatinine Glucose Ferritin Lactate Dehydrogenase Meds: Medications Acetaminophen (Tylenol) 650 mg PO Q4-6HP PRN; Protocol PRN Reason: Per Pain Protocol/Fever > 101 Hydrocodone Bitart/Acetaminophen ([place] 10/325mg) 1 tab PO Q6H PRN; Protocol PRN Reason: Pain Last Admin: 05/26/19 20:23 Dose: 1 tab Documented by: Albuterol Sulfate (Ventolin) 2.5 mg NEB Q2HP PRN PRN Reason: Shortness Of Breath Last Admin: 05/27/19 10:42 Dose: 2.5 mg Documented by: Aspirin (Aspirin) 81 mg PO DAILY [facility] Last Admin: 05/27/19 09:34 Dose: 81 mg Documented by: Docusate Sodium (Colace) 100 mg PO BID [facility] Last Admin: 05/27/19 09:35 Dose: Not Given Documented by: Duloxetine HCl (Cymbalta) 90 mg PO DAILY [facility] Last Admin: 05/27/19 09:32 Dose: 90 mg Documented by: Furosemide (Lasix) 20 mg PO DAILY [facility] Last Admin: 05/27/19 09:34 Dose: 20 mg Documented by: Gabapentin (Neurontin) 800 mg PO TID [facility] Last Admin: 05/27/19 09:33 Dose: 800 mg Documented by: Heparin Sodium (Porcine) (Heparin) 5,000 unit SQ Q12 [facility] Last Admin: 05/27/19 09:35 Dose: 5,000 unit Documented by: Ceftriaxone Sodium 2 gm/ (Dextrose) 50 mls @ 100 mls/hr IV Q24H [facility]; Protocol Levofloxacin (Levaquin) 750 mg in 150 mls @ 100 mls/hr IV Q24H [facility]; Protocol Magnesium Sulfate (Magnesium Sulfate) 2 gm in 50 mls @ 50 mls/hr IV UD PRN PRN Reason: MG = or < 1.7 Acetaminophen (Ofirmev) 650 mg in 65 mls @ 130 mls/hr IV Q6HP PRN; Protocol PRN Reason: Per Pain Protocol/Fever > 101 Iron Carb/Multivit/Dime Box/Folic Acid (Multivitamin W/Minerals) 1 tab PO DAILY [facility] Last Admin: 05/27/19 09:32 Dose: 1 tab Documented by: Lisinopril (Zestril) 10 mg PO DAILY [facility] Last Admin: 05/27/19 09:34 Dose: 10 mg Documented by: Magnesium Hydroxide (Milk Of Magnesia) 30 ml PO HSP PRN PRN Reason: Constipation Methylprednisolone Sodium Succinate (Solu-Medrol) 60 mg IV Q6 [facility] Last Admin: 05/27/19 05:13 Dose: 60 mg Documented by: Montelukast Sodium (Singular) 10 mg PO DAILY [facility] Last Admin: 05/27/19 09:32 Dose: 10 mg Documented by: Nicotine (Nicoderm) 14 mg TOPICAL DAILY@1000 [facility] Omeprazole (Prilosec) 20 mg PO ACB [facility] Last Admin: 05/27/19 09:32 Dose: 20 mg Documented by: Ondansetron HCl (Zofran) 4 mg IV Q4-6HP PRN; Protocol PRN Reason: Nausea And Vomiting Potassium Chloride (Klor-Con) 40 meq PO DAILYP PRN PRN Reason: K+ < 3.5 Potassium Chloride (Kdur) 10 meq PO QAMCC [facility] Last Admin: 05/27/19 09:34 Dose: 10 meq Documented by: Fluticasone/Salmeterol (Advair 250-50 Diskus) 1 puff INH BID [facility] Last Admin: 05/27/19 09:43 Dose: 1 puff Documented by: Senna/Docusate Sodium (Senna Plus Tablet) 1 tab PO HS [facility] Last Admin: 05/26/19 20:25 Dose: Not Given Documented by: Sodium Chloride (Saline Flush) 10 ml IV Q8 [facility] Last Admin: 05/27/19 05:14 Dose: 10 ml Documented by: Thiamine HCl (Vitamin B1) 100 mg PO DAILY [facility] Last Admin: 05/27/19 09:33 Dose: 100 mg Documented by: Tiotropium [place] (Spiriva) 18 mcg INH DAILY [facility] Last Admin: 05/27/19 09:43 Dose: 1 spr Documented by: Trazodone HCl (Desyrel) 50 mg PO HSP PRN PRN Reason: Insomnia Medical - PN: A/P - Time Spent With Patient Total time spent is greater than 50% in coordination of care (as documented) at patient's floor/unit and/or counseling patient: 15 - 24 minutes (1) Acute exacerbation of chronic obstructive airways disease Status: Acute Assessment and plan: * Acute exacerbation of COPD-clinically improving. Continue stero ids/bronchodilators/pulmonary toilet * Hypoxic respiratory failure - On 4 L oxygen. * History of hypertension continue RAISA inhibitor * GERD continue PPI * Neuropathy continue gabapentin * Anxiety disorder continue duloxetine * Tobacco dependence continue nicotine patch * Full code * Prophylaxis heparin Plan * Continue COPD management as above * PT OT/nutrition support/RT treatments * Prior medical condition management home meds * May discharge in 24 hours if clinically improved Current Visit: Yes Medical - PN: Qual - VTE Deep Vein Thrombosis/Pulmonary Embolism Present on Admission: No
[2019-05-27] MEDS: cefTRIAXone 2 GM in DEXTROSE 5% IN WATER 50 ML IV SCH (10:57)
[2019-05-27] MEDS: LEVOFLOXACIN 750 MG/150 ML BAG IV SCH (11:01)
[2019-05-27 11:02] LABS: Hematocrit 33.1 % (36.0-48.0); Hemoglobin 10.1 g/dL (12.0-15.0); Mean Cell Volume 71.3 fL (80.0-100.0); Mean Corpuscular HGB Conc 30.6 g/dL (31.0-36.0); Mean Platelet Volume 7.7 fL (7.4-10.4); Platelet Count 367 K/mcL (140-440); RBC 4.64 M/mcL (4.00-5.20); Red Cell Distribution Width 19.1 % (11.5-14.5); WBC 13.3 K/mcL (4.5-11.0)
[2019-05-27] MEDS: NICOTINE 14 MG PATCH TOPICAL SCH (12:49)
--- NOTE | 2019-05-27 13:06 | Discharge Summary ---
Medical - DS: Prov Patient information: Note initiated : 05/27/19 at 1:04 pm Service Date, if different from initiated Date: [] Patient: Martha Allison 64 y/o F admitted on 05/25/19 for sob. Chief Complaint: [] Date of admission: 05/25/19 12:25 Primary care physician: Heavenly Enriquez Consults: 05/25/19 10:46 Consult to Physician [CONS] Stat Comment: Consulting Provider: Melo Baca Reason For Exam: Physician to Consult Medical - DS: Meds - Discharge Medications Prescriptions: predniSONE [Deltasone] 40 mg PO DAILY #10 tab Transmission Status: Received by [facility] Levofloxacin [Levaquin] 500 mg PO DAILY #3 tab Transmission Status: Received by [facility] Active and Home Medications: Home Medications Albuterol Sulfate [Ventolin] 2.5 mg NEB Q4-6HP 05/25/19 [History Confirmed 05/25/19 Last Taken 05/24/19] Aspirin [Adult Aspirin Regimen] 81 mg PO DAILY 05/25/19 [History Confirmed 05/25/19 Last Taken 05/24/19] Benazepril [Lotensin] 20 mg PO DAILY 05/25/19 [History Confirmed 05/25/19 Last Taken 05/24/19] DULoxetine [Cymbalta] 90 mg PO DAILY 05/25/19 [History Confirmed 05/25/19 Last Taken 05/24/19] Fluticasone/Salmeterol [Advair 250-50 Diskus] 1 puff INH BID 05/25/19 [History Confirmed 05/25/19 Last Taken 05/24/19] Furosemide [Lasix] 20 mg PO DAILY 05/25/19 [History Confirmed 05/25/19 Last Taken 05/24/19] Gabapentin [Neurontin] 800 mg PO TID 05/25/19 [History Confirmed 05/25/19 Last Taken 05/24/19] HYDROcodone/APAP 10/325MG [[place] 10-325Mg] 1 tab PO Q6H PRN 05/25/19 [History Confirmed 05/25/19 Last Taken 05/24/19] Montelukast [Singular] 10 mg PO DAILY 05/25/19 [History Confirmed 05/25/19 Last Taken 05/24/19] Omeprazole [Prilosec] 20 mg PO ACB 05/25/19 [History Confirmed 05/25/19 Last Taken 05/24/19] Potassium Chloride [Kdur] 10 meq PO DAILY 05/25/19 [History Confirmed 05/25/19 Last Taken 05/24/19] Tiotropium [place] [Spiriva] 18 mcg INH DAILY 05/25/19 [History Confirmed 05/25/19 Last Taken 05/24/19] Levofloxacin [Levaquin] 500 mg PO DAILY #3 tab 05/27/19 [Rx Last Taken Unknown] predniSONE [Deltasone] 40 mg PO DAILY #10 tab 05/27/19 [Rx Last Taken Unknown] Medical - DS: Hosp Hospital Course: Discharge diagnosis * Acute exacerbation of COPD-clinically improving. Continue IV steroids/bronchodilators * Hypoxic respiratory failure with dyspnea secondary to above. On 4 L oxygen. * History of hypertension continue RAISA inhibitor * GERD continue PPI * Neuropathy continue gabapentin * Anxiety disorder continue duloxetine * Tobacco dependence continue nicotine patch Brief hospital course Ms. Allison is a 64 year old F with a known history of advanced COPD actively smoking half a pack a day on home oxygen who presents with 3 days onset of worsening shortness of breath along with cough and breathing. Patient endorses to both daughters sick with bronchitis. She endorses to yellow-green productive sputum with increasing purulence. She was initially short of breath on exertion which now has progressed at rest with significant orthopnea. She endorses loss of appetite along with low-grade fever without chills. She denies headache, photophobia but endorses to generalized body ache and malaise. She is fairly malnourished with a BMI of 19.2. She endorses to history of allergy to starch but of late has been eating a lot of potatoes and [place] fries to gain weight. Initial work-up in the ER was consistent with COPD exacerbation with tachycardia, tachypnea and fever. Chest imaging was consistent with COPD but otherwise no acute process. She was started on Solu-Medrol/broncho-dilators. Patient however did not demonstrate improvement in her symptoms. Subsequently hospitalist service was consulted. At the time of evaluation patient is accompanied with 2 daughters Lynnette and Sandy. They were able to answer most of the questions. Patient is fairly short of breath sitting up in bed. She endorses to history as above. Her last COPD flare was a year ago for which she was hospitalized. She has been on mechanical ventilation few years ago for COPD flare. Intermittently she has had exacerbations that was treated outpatient on oral prednisone. 05/26-patient gradually improving. On steroids and bronchodilators. On 4 L oxygen. Ambulating and tolerating diet. Did not require BiPAP. Anticipate discharge in 24 hours on continue antibiotics/steroids. No overnight fever chills or concerns per staff. 05/27-patient doing well. No overnight events. Requesting discharge. Feels a lot better. New prednisone 40 mg for 5 days along with Levaquin for additional 3 days. Continue oxygen at home settings. Follow-up PCP in 5 to 7 days. Discharge diagnosis: COPD exacerbation hypoxic respiratory failure hypertension Secondary discharge diagnosis: GERD neuropathy anxiety tobacco abuse - Time Spent with Patient Total time spent providing and/or coordinating discharge services: Greater than 30 minutes Medical - DS: Exam - Constitutional Vitals: Vital Signs Temp Pulse Pulse Resp BP BP Pulse Ox 05/27/19 10:43 94 H 18 92 05/27/19 08:00 98.1 F 87 22 199/102 100 05/27/19 04:20 171/93 05/27/19 03:40 98.4 F 88 20 192/97 93 05/27/19 00:40 172/88 05/27/19 00:00 98.4 F 96 H 20 191/99 98 05/26/19 23:25 98 H 20 05/26/19 20:00 97.5 F 100 H 20 175/86 94 05/26/19 19:05 106 H 20 Intake and Output 05/26/19 05/27/19 05/27/19 21:59 05:59 13:59 Intake Total 920 780 Output Total 875 1375 Balance 45 -595 Intake: Oral 920 780 Output: Void Amount 875 1375 Other: Meal Dinner Percent of Meal Consumed 100% Urine Appearance Clear Urine Color Bright Yellow Weight 45.949 kg Medical - DS: Data Labs on day of discharge: Labs from last 24 hours 05/27/19 05/27/19 04:00 04:00 WBC 13.3 H RBC 4.64 Hgb 10.1 L Hct 33.1 L MCV 71.3 L MCH 21.8 L MCHC 30.6 L RDW 19.1 H Plt Count 367 MPV 7.7 Total Counted 100 Seg Neutrophils % 89 H Band Neutrophils % 2 Lymphocytes % 4 L Monocytes % (Manual) 4 Reactive Lymphocytes 1 Platelet Estimate Normal RBC Morphology Abnorm A Polychromasia 1+ A Hypochromasia 2+ A Poikilocytosis 2+ A Anisocytosis 2+ A Microcytosis 2+ A Ovalocytes 1+ A RBC Fragments Occ A Sodium 138 Potassium 4.4 Chloride 98 Carbon Dioxide 27 Anion Gap 13.0 BUN 14 Creatinine 0.6 GFR Calculation 97 Glucose 124 H Uric Acid 3.2 Calcium 9.3 Phosphorus 3.9 Magnesium 2.1 Total Bilirubin 0.2 Direct Bilirubin < 0.2 GGT 16 AST 23 ALT 16 Alkaline Phosphatase 65 Lactate Dehydrogenase 317 H Total Protein 6.7 Albumin 3.9 Globulin 2.8 Albumin/Globulin Ratio 1.4 Triglycerides 97 Preliminary micro results at discharge 05/25/19 06:10 Blood Culture - Preliminary Blood 05/25/19 06:05 Blood Culture - Preliminary Blood Medical - DS: A/P - Patient/Caregiver Discharge Instructions Activity: increase activity as tolerated Diet: Regular Diet Additional Instructions: Continue protein calorie supplements. Continue steroids for 5 days. continue antibiotics for 3 days. Follow-up PCP in 5 to 7 days. Refrain from smoking. Return to ER if worsening fever chills shortness of breath. Increase activity as tolerated. May resume regular diet as tolerated. Prescriptions: predniSONE [Deltasone] 40 mg PO DAILY #10 tab Transmission Status: Received by [facility] Levofloxacin [Levaquin] 500 mg PO DAILY #3 tab Transmission Status: Received by [facility] - Follow up Plan Follow up with: Gary Beckett ARNP [Physician] - 06/08/19 1:00 pm Disposition: Home, Self-Care Care Plan Goals: This discharge packet is provided to you to help keep you informed about your care. We want to ensure you get everything you need when you go home. You will also be receiving a call from us in a few days to follow up with you and see how you are doing since your discharge. This gives us a chance to listen to any concerns you maybe experiencing since you were discharged or any additional needs you may have, as well as providing us feedback on your care experience. We strive to always provide excellent care and thank you for your feedback and for choosing [facility]. Prognosis: Fair Rehab Potential: Fair Overall status at discharge: patient is progressing back to baseline Medical - DS: Qual - VTE Deep Vein Thrombosis/Pulmonary Embolism Present on Admission: No
[2019-05-27] MEDS: HYDROcodone/APAP 10/325MG TABLET PO PRN ×2 (15:50→21:22)
[2019-05-27] MEDS: SENNOSIDES/DOCUSATE SODIUM 1 TAB TABLET PO SCH (21:06)
[2019-05-28] MEDS: methylPREDNISolone SOD SUCC 125 MG/2 ML VIAL IV SCH ×2 (05:32)
[2019-05-28] MEDS: 0.9 % SODIUM CHLORIDE 10 ML SYRINGE IV SCH ×4 (05:32→20:43)
[2019-05-28 06:29] LABS: Hematocrit 32.9 % (36.0-48.0); Hemoglobin 9.7 g/dL (12.0-15.0); Mean Cell Volume 69.8 fL (80.0-100.0); Mean Corpuscular HGB Conc 29.6 g/dL (31.0-36.0); Mean Platelet Volume 7.4 fL (7.4-10.4); Platelet Count 398 K/mcL (140-440); RBC 4.71 M/mcL (4.00-5.20); Red Cell Distribution Width 18.6 % (11.5-14.5); WBC 10.2 K/mcL (4.5-11.0)
[2019-05-28 06:53] LABS: ALT/SGPT 17 U/l (0-40); AST/SGOT 21 U/l (0-37); Albumin 3.6 gm/dL (3.2-5.2); Albumin/Globulin Ratio 1.4 (1.0-2.3); Alkaline Phosphatase 60 U/L (39-117); Bilirubin,Direct < 0.2 mg/dL (0.0-0.3); Bilirubin,Total 0.3 mg/dL (0.0-1.0); Blood Urea Nitrogen 14 mg/dl (8-23); Calcium 9.3 mg/dl (8.6-10.4); Chloride 97 mmol/L (96-108); Globulin 2.6 gm/dL (2.2-3.7); Glomerular Filtration Rate 97; Glucose 124 mg/dL (70-105); Lactate Dehydrogenase 242 U/L (94-250); Triglycerides 114 mg/dl (<150); Uric Acid 3.3 mg/dL (2.5-8.0)
[2019-05-28 06:54] LABS: Carbon Dioxide 36 mmol/L (22-30)
[2019-05-28] MEDS ORDERED: LORazepam 2 MG/ML VIAL IV PRN ×2 (07:20→12:51)
--- NOTE | 2019-05-28 07:21 | Internal Med Progress Note ---
Medical - PN: Subj Patient information: Note initiated : 05/28/19 at 7:11 am Service Date, if different from initiated Date: [] Patient: Martha Allison a 64 y/o F admitted on 05/25/19 for sob. Chief Complaint: [] Interval history: Ms. Allison is a 64 year old F with a known history of advanced COPD actively smoking half a pack a day on home oxygen who presents with 3 days onset of worsening shortness of breath along with cough and breathing. Patient endorses to both daughters sick with bronchitis. She endorses to yellow-green productive sputum with increasing purulence. She was initially short of breath on e xertion which now has progressed at rest with significant orthopnea. She endorses loss of appetite along with low-grade fever without chills. She denies headache, photophobia but endorses to generalized body ache and malaise. She is fairly malnourished with a BMI of 19.2. She endorses to history of allergy to starch but of late has been eating a lot of potatoes and [place] fries to gain weight. Initial work-up in the ER was consistent with COPD exacerbation with tachycardia, tachypnea and fever. Chest imaging was consistent with COPD but otherwise no acute process. She was started on Solu-Medrol/broncho-dilators. Patient however did not demonstrate improvement in her symptoms. Subsequently hospitalist service was consulted. At the time of evaluation patient is accompanied with 2 daughters Lynnette and Sandy. They were able to answer most of the questions. Patient is fairly short of breath sitting up in bed. She endorses to history as above. Her last COPD flare was a year ago for which she was hospitalized. She has been on mechanical ventilation few years ago for COPD flare. Intermittently she has had exacerbations that was treated outpatient on oral prednisone. 05/26-patient gradually improving. On steroids and bronchodilators. On 4 L oxygen. Ambulating and tolerating diet. Did not require BiPAP. Anticipate discharge in 24 hours on continue antibiotics/steroids. No overnight fever chills or concerns per staff. 05/27-patient feeling better this morning and wanted to discharge however a couple of hours later became short of breath and feels that she is not quite ready and will benefit from an extra day of hospitalization. Continue existing treatment including steroids and bronchodilators. No overnight fever chills recommend discharging in 24 hours on oral prednisone with follow-up with PCP. 05/28 slept ok. still short ob breath and feels albuterol treatments making her symptoms worse. Just had albuterol and appear labored and anxious. Hypert ensive as well and has been labile during stay. cough overall improved, has chronic diarrhea. will check ABG, and viral resp panel. CXR yesterday unremarkable. Review of Systems: denies headache/fever/chills/nausea/vomiting/chest or abdominal pain. Otherwise see above. - Constitutional Vitals: Vital Signs Temp Pulse Resp BP Pulse Ox 97.8 F 92 H 22 177/95 95 05/28/19 04:00 05/28/19 04:00 05/28/19 04:00 05/28/19 04:00 05/28/19 04:00 Period Temp Pulse Resp BP Sys/Teague Pulse Ox Last 24 Hr 97.3 F-98.6 F 76-101 16-26 153-199/82-108 92-100 Intake and Output 05/27/19 05/28/19 05/28/19 21:59 05:59 13:59 Intake Total 590 240 Balance 590 240 Weight 46.085 kg Intake & Output: Intake & Output 05/27/19 05/28/19 05/28/19 21:59 05:59 13:59 Intake Total 590 240 Balance 590 240 Weight 46.085 kg Intake: Oral 590 240 Other: Meal Dinner Percent of Meal Consumed 75% Feeding Ability Independent Stool Consistency Normal for Patient Soft # Voids 1 1 # Bowel Movements 1 Exam: General: Alert, Awake, No acute Distress Eyes/N/T: EOMI, Head/Neck: neck supple, CV: RRR, No murmurs, Pulm: moderately diminished BS b/l and exp wheezing b/l Abd: soft, nontender, +BS x4 Ext: no clubbing/cyanosis/edema Neuro: Alert, no focal deficits, moves all extremities, Skin: warm/dry Psych: anxious Medical - PN: Obj Da - Labs CBC & Chem 7: 05/28/19 05:24 05/28/19 05:24 Labs: Abnormal Lab Results 05/28/19 05/28/19 05/27/19 05:24 05:24 04:00 WBC Hgb 9.7 L Hct 32.9 L MCV 69.8 L MCH 20.7 L MCHC 29.6 L RDW 18.6 H Seg Neutrophils % Lymphocytes % RBC Morphology Polychromasia Hypochromasia Poikilocytosis Anisocytosis Microcytosis Ovalocytes Acanthocytes (Spur) RBC Fragments Carbon Dioxide 36 H Anion Gap 7.0 L Creatinine Glucose 124 H 124 H Ferritin Lactate Dehydrogenase 317 H 05/27/19 05/26/19 05/26/19 04:00 03:46 03:46 WBC 13.3 H Hgb 10.1 L 8.9 L Hct 33.1 L 30.0 L MCV 71.3 L 70.7 L MCH 21.8 L 21.1 L MCHC 30.6 L 29.8 L RDW 19.1 H 19.5 H Seg Neutrophils % 89 H 92 H Lymphocytes % 4 L 5 L RBC Morphology Abnorm A Abnorm A Polychromasia 1+ A Hypochromasia 2+ A 1+ A Poikilocytosis 2+ A Anisocytosis 2+ A 1+ A Microcytosis 2+ A 2+ A Ovalocytes 1+ A 1+ A Acanthocytes (Spur) 1+ A RBC Fragments Occ A Carbon Dioxide Anion Gap Creatinine 0.5 L Glucose 122 H Ferritin Lactate Dehydrogenase 05/25/19 05:30 WBC Hgb Hct MCV MCH MCHC RDW Seg Neutrophils % Lymphocytes % RBC Morphology Polychromasia Hypochromasia Poikilocytosis Anisocytosis Microcytosis Ovalocytes Acanthocytes (Spur) RBC Fragments Carbon Dioxide Anion Gap Creatinine Glucose Ferritin 18.5 L Lactate Dehydrogenase Meds: Medications Acetaminophen (Tylenol) 650 mg PO Q4-6HP PRN; Protocol PRN Reason: Per Pain Protocol/Fever > 101 Hydrocodone Bitart/Acetaminophen ([place] 10/325mg) 1 tab PO Q6H PRN; Protocol PRN Reason: Pain Last Admin: 05/27/19 21:22 Dose: 1 tab Documented by: Albuterol Sulfate (Ventolin) 2.5 mg NEB Q2HP PRN PRN Reason: Shortness Of Breath Last Admin: 05/27/19 19:15 Dose: 2.5 mg Documented by: Aspirin (Aspirin) 81 mg PO DAILY [facility] Last Admin: 05/27/19 09:34 Dose: 81 mg Documented by: Docusate Sodium (Colace) 100 mg PO BID [facility] Last Admin: 05/27/19 21:06 Dose: Not Given Documented by: Duloxetine HCl (Cymbalta) 90 mg PO DAILY [facility] Last Admin: 05/27/19 09:32 Dose: 90 mg Documented by: Furosemide (Lasix) 20 mg PO DAILY [facility] Last Admin: 05/27/19 09:34 Dose: 20 mg Documented by: Gabapentin (Neurontin) 800 mg PO TID [facility] Last Admin: 05/27/19 21:18 Dose: 800 mg Documented by: Heparin Sodium (Porcine) (Heparin) 5,000 unit SQ Q12 [facility] Last Admin: 05/27/19 21:18 Dose: 5,000 unit Documented by: Ceftriaxone Sodium 2 gm/ (Dextrose) 50 mls @ 100 mls/hr IV Q24H [facility]; Protocol Last Admin: 05/27/19 10:57 Dose: 100 mls/hr Documented by: Levofloxacin (Levaquin) 750 mg in 150 mls @ 100 mls/hr IV Q24H [facility]; Protocol Last Admin: 05/27/19 11:01 Dose: 100 mls/hr Documented by: Magnesium Sulfate (Magnesium Sulfate) 2 gm in 50 mls @ 50 mls/hr IV UD PRN PRN Reason: MG = or < 1.7 Acetaminophen (Ofirmev) 650 mg in 65 mls @ 130 mls/hr IV Q6HP PRN; Protocol PRN Reason: Per Pain Protocol/Fever > 101 Iron Carb/Multivit/[place]/Folic Acid (Multivitamin W/Minerals) 1 tab PO DAILY [facility] Last Admin: 05/27/19 09:32 Dose: 1 tab Documented by: Lisinopril (Zestril) 10 mg PO DAILY [facility] Last Admin: 05/27/19 09:34 Dose: 10 mg Documented by: Magnesium Hydroxide (Milk Of Magnesia) 30 ml PO HSP PRN PRN Reason: Constipation Methylprednisolone Sodium Succinate (Solu-Medrol) 60 mg IV Q6 [facility] Last Admin: 05/28/19 05:32 Dose: 60 mg Documented by: Montelukast Sodium (Singular) 10 mg PO DAILY [facility] Last Admin: 05/27/19 09:32 Dose: 10 mg Documented by: Nicotine (Nicoderm) 14 mg TOPICAL DAILY@1000 [facility] Last Admin: 05/27/19 12:49 Dose: 14 mg Documented by: Omeprazole (Prilosec) 20 mg PO ACB [facility] Last Admin: 05/27/19 09:32 Dose: 20 mg Documented by: Ondansetron HCl (Zofran) 4 mg IV Q4-6HP PRN; Protocol PRN Reason: Nausea And Vomiting Potassium Chloride (Klor-Con) 40 meq PO DAILYP PRN PRN Reason: K+ < 3.5 Potassium Chloride (Kdur) 10 meq PO QAC [facility] Last Admin: 05/27/19 09:34 Dose: 10 meq Documented by: Fluticasone/Salmeterol (Advair 250-50 Diskus) 1 puff INH BID [facility] Last Admin: 05/27/19 21:19 Dose: 1 puff Documented by: Senna/Docusate Sodium (Senna Plus Tablet) 1 tab PO HS [facility] Last Admin: 05/27/19 21:06 Dose: Not Given Documented by: Sodium Chloride (Saline Flush) 10 ml IV Q8 [facility] Last Admin: 05/28/19 05:32 Dose: 10 ml Documented by: Thiamine HCl (Vitamin B1) 100 mg PO DAILY [facility] Last Admin: 05/27/19 09:33 Dose: 100 mg Documented by: Tiotropium [place] (Spiriva) 18 mcg INH DAILY [facility] Last Admin: 05/27/19 09:43 Dose: 1 spr Documented by: Trazodone HCl (Desyrel) 50 mg PO HSP PRN PRN Reason: Insomnia Medical - PN: A/P - Time Spent With Patient Total time spent is greater than 50% in coordination of care (as documented) at patient's floor/unit and/or counseling patient: - Narrative A/P Narrative: A: *AECOPD (4L O2@home):still quite labored and lungs tight -follow with pulmonology in [place] (Dr. Burgos) *Acute Hypoxic respiratory failure -on 2L oxygen *HTN: uncontrolled *GERD: continue PPI *Neuropathy: continue gabapentin *Anxiety: disorder continue duloxetine *Tobacco dependence continue nicotine patch *Anemia, chronic: Plan: -Continue steroids(wean)/bronchodilators(hold on albuterol will try ipatropium n eb)/pulmonary toilet -continue ACEI(increase), may need dual therapy, prn IV meds -prn ativan, cont home duloxetine -cont home rocío -hold home lasix for now -PT OT/nutrition support/RT treatments -Smoking cessation counseling - -ppx: lovenox/home ppi Medical - PN: Qual - VTE Deep Vein Thrombosis/Pulmonary Embolism Present on Admission: No
[2019-05-28 07:41] LABS: Anisocytosis 1+ (NONE SEEN); Hypochromasia 3+ (NONE SEEN); Lymphocytes % 2 % (15-49); Microcytosis 3+ (NONE SEEN); Monocytes % (Manual) 1 % (1-12); Ovalocytes 1+ (NONE SEEN); Platelet Estimate NORMAL (NORMAL); Poikilocytosis 3+ (NONE SEEN); Polychromasia 1+ (NONE SEEN); RBC Morphology ABNORM (NORMAL); Segmented Neutrophils % 97 % (38-78)
[2019-05-28] MEDS ORDERED: predniSONE 20 MG TABLET PO SCH (08:00)
[2019-05-28] MEDS: OMEPRAZOLE 20 MG CAPSULE PO SCH (08:08)
[2019-05-28] MEDS: POTASSIUM CHLORIDE 10 MEQ TABLET PO SCH (08:09)
[2019-05-28] MEDS: ALBUTEROL SULFATE 2.5 MG/3 ML NEBULIZER NEB PRN ×5 (08:22→22:50)
[2019-05-28] MEDS: THIAMINE 100 MG TABLET PO SCH (08:29)
[2019-05-28] MEDS: cefTRIAXone 2 GM in DEXTROSE 5% IN WATER 50 ML IV SCH (08:29)
[2019-05-28] MEDS: DULoxetine 30 MG CAPSULE PO SCH (08:30)
[2019-05-28] MEDS: FUROSEMIDE 20 MG TABLET PO SCH (08:30)
[2019-05-28] MEDS: ASPIRIN 81 MG TAB.CHEW PO SCH (08:30)
[2019-05-28] MEDS: MONTELUKAST 10 MG TABLET PO SCH (08:30)
[2019-05-28] MEDS: GABAPENTIN 400 MG CAPSULE PO SCH ×3 (08:31→20:43)
[2019-05-28] MEDS: MULTIVIT,THER IRON,CA,FA & MIN 1 TABLET PO SCH (08:31)
[2019-05-28] MEDS: FLUTICASONE/SALMETEROL 250/50 INHALER #14 INH SCH ×2 (08:32→22:11)
[2019-05-28] MEDS: DOCUSATE SODIUM 100 MG CAPSULE PO SCH ×2 (08:32→22:11)
[2019-05-28] MEDS ORDERED: LISINOPRIL 10 MG TABLET PO SCH (09:00)
[2019-05-28] MEDS ORDERED: ENOXAPARIN 30 MG/0.3 ML SYRINGE SQ SCH (09:00)
[2019-05-28] MEDS ORDERED: ENALAPRILAT 1.25 MG/ML VIAL IV PRN ×2 (09:03→12:51)
[2019-05-28] MEDS ORDERED: hydrALAZINE 20 MG/ML VIAL IV PRN ×2 (09:03→12:51)
[2019-05-28] MEDS ORDERED: IPRATROPIUM 2.5 ML AMPUL.NEB NEB PRN (09:08)
[2019-05-28] MEDS ORDERED: IPRATROPIUM 2.5 ML AMPUL.NEB NEB ONE (09:08)
[2019-05-28] MEDS: LEVOFLOXACIN 750 MG/150 ML BAG IV SCH (09:23)
[2019-05-28] MEDS: TIOTROPIUM BROMIDE 18 MCG INHALANT INH SCH (09:51)
[2019-05-28] MEDS: NICOTINE 14 MG PATCH TOPICAL SCH (09:54)
[2019-05-28] MEDS ORDERED: ACETAMINOPHEN 650 MG/65 ML BOTTLE IV PRN (12:51)
[2019-05-28] MEDS ORDERED: traZODone HCL 50 MG TABLET PO PRN (12:51)
[2019-05-28] MEDS ORDERED: MAGNESIUM HYDROXIDE 30 ML ORAL.SUSP PO PRN (12:51)
[2019-05-28] MEDS ORDERED: MAGNESIUM SULFATE 2 GM/50 ML BAG IV PRN (12:51)
[2019-05-28] MEDS ORDERED: ACETAMINOPHEN 325 MG TABLET PO PRN (12:51)
[2019-05-28] MEDS ORDERED: HYDROcodone/APAP 10/325MG TABLET PO PRN (12:51)
[2019-05-28] MEDS ORDERED: POTASSIUM CHLORIDE 20 MEQ PACKET PO PRN (12:51)
[2019-05-28] MEDS ORDERED: ONDANSETRON 4 MG/2 ML VIAL IV PRN (12:51)
[2019-05-28] MEDS ORDERED: LORazepam 2 MG/ML VIAL IV ONE ×2 (12:54→15:32)
[2019-05-28] MEDS: IPRATROPIUM 2.5 ML AMPUL.NEB NEB PRN ×3 (15:06→22:50)
[2019-05-28] MEDS ORDERED: DEXMEDETOMIDINE 400 MCG/100 ML BAG IV SCH (15:30)
[2019-05-28] MEDS: predniSONE 20 MG TABLET PO SCH (18:56)
[2019-05-28] MEDS: LORazepam 2 MG/ML VIAL IV PRN (20:43)
[2019-05-28] MEDS ORDERED: SENNOSIDES/DOCUSATE SODIUM 1 TAB TABLET PO SCH (21:00)
[2019-05-29] MEDS: 0.9 % SODIUM CHLORIDE 10 ML SYRINGE IV SCH ×2 (05:24→20:31)
[2019-05-29 06:47] LABS: Calcium 8.9 mg/dl (8.6-10.4); Carbon Dioxide 33 mmol/L (22-30); Glomerular Filtration Rate 78; Glucose 98 mg/dL (70-105)
[2019-05-29 06:54] LABS: Blood Urea Nitrogen 29 mg/dl (8-23); Chloride 95 mmol/L (96-108)
[2019-05-29] MEDS ORDERED: OMEPRAZOLE 20 MG CAPSULE PO SCH (07:30)
--- NOTE | 2019-05-29 07:41 | Internal Med Progress Note ---
Medical - PN: Subj Patient information: Note initiated : 05/29/19 at 7:34 am Service Date, if different from initiated Date: [] Patient: Martha Allison a 64 y/o F admitted on 05/25/19 for sob. Chief Complaint: [] Interval history: Ms. Allison is a 64 year old F with a known history of advanced COPD actively smoking half a pack a day on home oxygen who presents with 3 days onset of worsening shortness of breath along with cough and breathing. Patient endorses to both daughters sick with bronchitis. She endorses to yellow-green productive sputum with increasing purulence. She was initially short of breath on e xertion which now has progressed at rest with significant orthopnea. She endorses loss of appetite along with low-grade fever without chills. She denies headache, photophobia but endorses to generalized body ache and malaise. She is fairly malnourished with a BMI of 19.2. She endorses to history of allergy to starch but of late has been eating a lot of potatoes and [place] fries to gain weight. Initial work-up in the ER was consistent with COPD exacerbation with tachycardia, tachypnea and fever. Chest imaging was consistent with COPD but otherwise no acute process. She was started on Solu-Medrol/broncho-dilators. Patient however did not demonstrate improvement in her symptoms. Subsequently hospitalist service was consulted. At the time of evaluation patient is accompanied with 2 daughters Lynnette and Sandy. They were able to answer most of the questions. Patient is fairly short of breath sitting up in bed. She endorses to history as above. Her last COPD flare was a year ago for which she was hospitalized. She has been on mechanical ventilation few years ago for COPD flare. Intermittently she has had exacerbations that was treated outpatient on oral prednisone. 05/26-patient gradually improving. On steroids and bronchodilators. On 4 L oxygen. Ambulating and tolerating diet. Did not require BiPAP. Anticipate discharge in 24 hours on continue antibiotics/steroids. No overnight fever chills or concerns per staff. 05/27-patient feeling better this morning and wanted to discharge however a couple of hours later became short of breath and feels that she is not quite ready and will benefit from an extra day of hospitalization. Continue existing treatment including steroids and bronchodilators. No overnight fever chills recommend discharging in 24 hours on oral prednisone with follow-up with PCP. 05/28 slept ok. still short ob breath and feels albuterol treatments making her symptoms worse. Just had albuterol and appear labored and anxious. Hypert ensive as well and has been labile during stay. cough overall improved, has chronic diarrhea. will check ABG, and viral resp panel. CXR yesterday unremarkable. 05/29 Tolerated the BiPAP until 4 in the morning. Blood gas is much improved. Patient does feel a little bit better. She feels like she is able to move her air in her lungs better although still short of breath. Denies any cough. Has a sore throat. Viral respiratory panel negative. Has occasional headache. Review of Systems: denies fever/chills/nausea/vomiting/chest or abdominal pain. Otherwise see above. - Constitutional Vitals: Vital Signs Temp Pulse Resp BP Pulse Ox 97.5 F 93 H 17 114/68 96 05/29/19 04:02 05/28/19 22:53 05/29/19 06:00 05/29/19 05:01 05/29/19 06:00 Period Temp Pulse Resp BP Sys/Teague Pulse Ox Last 24 Hr 96.4 F-98.3 F 92-126 13-44 66-229/43-133 69-100 Intake and Output 05/28/19 05/29/19 05/29/19 21:59 05:59 13:59 Intake Total 150 Output Total 501 720 Balance -351 -720 Intake & Output: Intake & Output 05/28/19 05/29/19 05/29/19 21:59 05:59 13:59 Intake Total 150 Output Total 501 720 Balance -351 -720 Intake: IV 150 Output: Void Amount 500 720 # of times incontinent of urine 1 Other: Urine Color Bright Yellow Bright Yellow Urine Odor Normal Normal Exam: General: Alert, Awake, No acute Distress Eyes/N/T: EOMI, Head/Neck: neck supple, CV: Tachycardia but regular, No murmurs, Pulm: still quite diminished b/l but some improvement today, also minimal wh eezing today Abd: soft, nontender, +BS x4 Ext: no clubbing/cyanosis/edema Neuro: Alert, no focal deficits, moves all extremities, Skin: warm/dry Psych: anxious Medical - PN: Obj Da - Labs CBC & Chem 7: 11/21/19 05:24 05/29/19 04:05 Labs: Abnormal Lab Results 05/29/19 05/28/19 05/28/19 04:05 05:24 05:24 WBC Hgb 9.7 L Hct 32.9 L MCV 69.8 L MCH 20.7 L MCHC 29.6 L RDW 18.6 H Seg Neutrophils % 97 H Lymphocytes % 2 L RBC Morphology Abnorm A Polychromasia 1+ A Hypochromasia 3+ A Poikilocytosis 3+ A Anisocytosis 1+ A Microcytosis 3+ A Ovalocytes 1+ A Acanthocytes (Spur) RBC Fragments Chloride 95 L Carbon Dioxide 33 H 36 H Anion Gap 7.0 L BUN 29 H Glucose 124 H Lactate Dehydrogenase 05/27/19 05/27/19 05/26/19 04:00 04:00 03:46 WBC 13.3 H Hgb 10.1 L Hct 33.1 L MCV 71.3 L MCH 21.8 L MCHC 30.6 L RDW 19.1 H Seg Neutrophils % 89 H 92 H Lymphocytes % 4 L 5 L RBC Morphology Abnorm A Abnorm A Polychromasia 1+ A Hypochromasia 2+ A 1+ A Poikilocytosis 2+ A Anisocytosis 2+ A 1+ A Microcytosis 2+ A 2+ A Ovalocytes 1+ A 1+ A Acanthocytes (Spur) 1+ A RBC Fragments Occ A Chloride Carbon Dioxide Anion Gap BUN Glucose 124 H Lactate Dehydrogenase 317 H Meds: Medications Acetaminophen (Tylenol) 650 mg PO Q4-6HP PRN; Protocol PRN Reason: Per Pain Protocol/Fever > 101 Hydrocodone Bitart/Acetaminophen ([place] 10/325mg) 1 tab PO Q6H PRN; Protocol PRN Reason: Pain Last Admin: 05/28/19 15:55 Dose: 1 tab Documented by: Albuterol Sulfate (Ventolin) 2.5 mg NEB Q2HP PRN PRN Reason: Shortness Of Breath Last Admin: 05/28/19 22:50 Dose: 2.5 mg Documented by: Aspirin (Aspirin) 81 mg PO DAILY [facility] Docusate Sodium (Colace) 100 mg PO BID [facility] Last Admin: 05/28/19 22:11 Dose: Not Given Documented by: Duloxetine HCl (Cymbalta) 90 mg PO DAILY [facility] Enalaprilat (Vasotec) 0 mg IV Q2HP PRN PRN Reason: Hypertension Enoxaparin Sodium (Lovenox) 30 mg SQ DAILY [facility] Gabapentin (Neurontin) 800 mg PO TID [facility] Last Admin: 05/28/19 20:43 Dose: 800 mg Documented by: Hydralazine HCl (Apresoline) 0 mg IV Q2HP PRN PRN Reason: Hypertension Ceftriaxone Sodium 2 gm/ (Dextrose) 50 mls @ 100 mls/hr IV Q24H [facility]; Protocol Levofloxacin (Levaquin) 750 mg in 150 mls @ 100 mls/hr IV Q24H [facility]; Protocol Magnesium Sulfate (Magnesium Sulfate) 2 gm in 50 mls @ 50 mls/hr IV UD PRN PRN Reason: MG = or < 1.7 Acetaminophen (Ofirmev) 650 mg in 65 mls @ 130 mls/hr IV Q6HP PRN; Protocol PRN Reason: Per Pain Protocol/Fever > 101 Dexmedetomidine HCl (Precedex 400 Mcg/100 Ml Dextrose) 400 mcg in 100 mls @ 2.304 mls/hr IV .Q24H [facility]; Protocol Last Admin: 05/29/19 05:24 Dose: Not Given Documented by: Ipratropium [place] (Atrovent) 2.5 ml NEB Q4HRT PRN PRN Reason: Dyspnea Last Admin: 05/28/19 22:50 Dose: 2.5 ml Documented by: Iron Carb/Multivit/[place]/Folic Acid (Multivitamin W/Minerals) 1 tab PO DAILY [facility] Lisinopril (Zestril) 30 mg PO DAILY [facility] Lorazepam (Ativan) 0.5 - 1 mg IV Q4-6HP PRN PRN Reason: ANXIETY/SEDATION Last Admin: 05/28/19 20:43 Dose: 0.5 mg Documented by: Magnesium Hydroxide (Milk Of Magnesia) 30 ml PO HSP PRN PRN Reason: Constipation Montelukast Sodium (Singular) 10 mg PO DAILY [facility] Nicotine (Nicoderm) 14 mg TOPICAL DAILY@1000 [facility] Omeprazole (Prilosec) 20 mg PO ACB [facility] Ondansetron HCl (Zofran) 4 mg IV Q4-6HP PRN; Protocol PRN Reason: Nausea And Vomiting Potassium Chloride (Klor-Con) 40 meq PO DAILYP PRN PRN Reason: K+ < 3.5 Potassium Chloride (Kdur) 10 meq PO QAC [facility] Prednisone (Prednisone) 40 mg PO BIDCC [facility] Last Admin: 05/28/19 18:56 Dose: 40 mg Documented by: Fluticasone/Salmeterol (Advair 250-50 Diskus) 1 puff INH BID [facility] Last Admin: 05/28/19 22:11 Dose: Not Given Documented by: Senna/Docusate Sodium (Senna Plus Tablet) 1 tab PO HS [facility] Last Admin: 05/28/19 22:11 Dose: Not Given Documented by: Sodium Chloride (Saline Flush) 10 ml IV Q8 [facility] Last Admin: 05/29/19 05:24 Dose: 10 ml Documented by: Thiamine HCl (Vitamin B1) 100 mg PO DAILY [facility] Tiotropium [place] (Spiriva) 18 mcg INH DAILY [facility] Trazodone HCl (Desyrel) 50 mg PO HSP PRN PRN Reason: Insomnia Last Admin: 05/28/19 20:43 Dose: 50 mg Documented by: Medical - PN: A/P - Time Spent With Patient Total time spent is greater than 50% in coordination of care (as documented) at patient's floor/unit and/or counseling patient: - Narrative A/P Narrative: A: *AECOPD (4L O2@home), Advanced: slowly improving -follow with pulmonology in [place] (Dr. Burgos) -viral resp panel neg -is on Prednisone 10mg daily@home for copd *Acute Hypoxic/hypercapnic respiratory failure -required Bipap to be stared yesterday. improving -off bipap this AM *Pulmonary cachexia: *HTN: uncontrolled likley 2/2 above&steroids, improved *GERD: continue PPI *Neuropathy: continue gabapentin *Anxiety: disorder continue duloxetine *Tobacco dependence continue nicotine patch *Anemia, chronic: Plan: -f/u ABG -Continue steroids(wean to home regimen eventually)/bronchodilators(hold on albuterol as pt feels this worsens sx and will try ipatropium neb )/pulmonary toilet -continue ACEI(increase), prn IV meds -prn ativan, cont home duloxetine -cont home rocío -hold home lasix for now -PT OT/nutrition support/RT treatments -Smoking cessation counseling -f/u with pulm outpt -ppx: lovenox/home ppi Medical - PN: Qual - VTE Deep Vein Thrombosis/Pulmonary Embolism Present on Admission: No
[2019-05-29] MEDS ORDERED: cefTRIAXone 2 GM in DEXTROSE 5% IN WATER 50 ML IV SCH (08:00)
[2019-05-29] MEDS ORDERED: POTASSIUM CHLORIDE 10 MEQ TABLET PO SCH (08:00)
[2019-05-29] MEDS ORDERED: ENOXAPARIN 30 MG/0.3 ML SYRINGE SQ SCH (09:00)
[2019-05-29] MEDS ORDERED: LISINOPRIL 20 MG TABLET PO SCH (09:00)
[2019-05-29] MEDS ORDERED: THIAMINE 100 MG TABLET PO SCH (09:00)
[2019-05-29] MEDS ORDERED: ASPIRIN 81 MG TAB.CHEW PO SCH (09:00)
[2019-05-29] MEDS ORDERED: MONTELUKAST 10 MG TABLET PO SCH (09:00)
[2019-05-29] MEDS ORDERED: DULoxetine 30 MG CAPSULE PO SCH (09:00)
[2019-05-29] MEDS ORDERED: MULTIVIT,THER IRON,CA,FA & MIN 1 TABLET PO SCH (09:00)
[2019-05-29] MEDS ORDERED: LEVOFLOXACIN 750 MG/150 ML BAG IV SCH (09:00)
[2019-05-29] MEDS ORDERED: LISINOPRIL 10 MG TABLET PO SCH (09:00)
[2019-05-29] MEDS: predniSONE 20 MG TABLET PO SCH (09:31)
[2019-05-29] MEDS: GABAPENTIN 400 MG CAPSULE PO SCH (09:32)
[2019-05-29] MEDS: DOCUSATE SODIUM 100 MG CAPSULE PO SCH (09:33)
[2019-05-29] MEDS: FLUTICASONE/SALMETEROL 250/50 INHALER #14 INH SCH ×2 (09:33→10:22)
[2019-05-29] MEDS: TIOTROPIUM BROMIDE 18 MCG INHALANT INH SCH ×2 (09:33→10:22)
[2019-05-29] MEDS ORDERED: NICOTINE 14 MG PATCH TOPICAL SCH (10:00)
[2019-05-29] MEDS ORDERED: LISINOPRIL 10 MG TABLET PO ONE (10:22)
[2019-05-29] MEDS ORDERED: BENZOCAINE/MENTHOL 1 LOZENGE PO PRN (10:23)
[2019-05-29] MEDS: HEPARIN 5,000 UNIT/ML VIAL SQ SCH (12:08)
[2019-05-29] MEDS: IPRATROPIUM 2.5 ML AMPUL.NEB NEB PRN (12:28)
[2019-05-29] MEDS: LORazepam 2 MG/ML VIAL IV PRN ×4 (13:23→21:29)
[2019-05-29] MEDS ORDERED: LACTOPEROXI/GLUC OXID/POT THIO 1 EACH GEL..EA. TOPICAL PRN (14:56)
[2019-05-29] MEDS ORDERED: ONDANSETRON 4 MG ODT TABLET SL PRN (14:56)
[2019-05-29] MEDS ORDERED: methylPREDNISolone SOD SUCC 40 MG/ML VIAL IV SCH (21:00)
[2019-05-30] MEDS: LORazepam 2 MG/ML VIAL IV PRN (04:02)
--- NOTE | 2019-05-30 07:30 | Death Note ---
Discharge Sum: Prov - Provider Patient information: Note initiated : 05/30/19 at 7:27 am Service Date, if different from initiated Date: [] Patient: Martha Allison a 64 y/o F admitted on 05/25/19 for sob. Chief Complaint: [] Primary care physician: Heavenly Enriquez Consults: 05/25/19 10:46 Consult to Physician [CONS] Stat Comment: Consulting Provider: Melo Baca Reason For Exam: Physician to Consult 05/30/19 04:36 Consult to Physician [CONS] Routine Comment: Donor candidate Consulting Provider: Eric Reyes Reason For Exam: Physician to Consult Discharge Sum: Diag - PCOD Cause of : Chronic obstructive airway disease with asthma Discharge Sum: Summary - Date and Time Date of admission: 05/25/19 12:25 Date of : 05/30/19 Time of : 04:08 - Summary Details: Ms. Allison is a 64 year old F with a known history of advanced COPD actively smoking half a pack a day on home oxygen who presents with 3 days onset of worsening shortness of breath along with cough and breathing. Patient endorses to both daughters sick with bronchitis. She endorses to yellow-green productive sputum with increasing purulence. She was initially short of breath on exertion which now has progressed at rest with significant orthopnea. She endorses loss of appetite along with low-grade fever without chills. She denies headache, photophobia but endorses to generalized body ache and malaise. She is fairly malnourished with a BMI of 19.2. She endorses to history of allergy to starch but of late has been eating a lot of potatoes and Sinhala fries to gain weight. Initial work-up in the ER was consistent with COPD exacerbation with tachycardia, tachypnea and fever. Chest imaging was consistent with COPD but otherwise no acute process. She was started on Solu-Medrol/broncho-dilators. Patient however did not demonstrate improvement in her symptoms. Subsequently hospitalist service was consulted. At the time of evaluation patient is accompanied with 2 daughters Lynnette and Sandy. They were able to answer most of the questions. Patient is fairly short of breath sitting up in bed. She endorses to history as above. Her last COPD flare was a year ago for which she was hospitalized. She has been on mechanical ventilation few years ago for COPD flare. Intermittently she has had exacerbations that was treated outpatient on oral prednisone. 05/26-patient gradually improving. On steroids and bronchodilators. On 4 L oxygen. Ambulating and tolerating diet. Did not require BiPAP. Anticipate discharge in 24 hours on continue antibiotics/steroids. No overnight fever c hills or concerns per staff. 05/27-patient feeling better this morning and wanted to discharge however a couple of hours later became short of breath and feels that she is not quite ready and will benefit from an extra day of hospitalization. Continue existing treatment including steroids and bronchodilators. No overnight fever chills recommend discharging in 24 hours on oral prednisone with follow-up with PCP. 05/28 slept ok. still short ob breath and feels albuterol treatments making her symptoms worse. Just had albuterol and appear labored and anxious. Hypertensive as well and has been labile during stay. cough overall improved, has chronic diarrhea. will check ABG, and viral resp panel. CXR yesterday unremarkable. 05/29 Tolerated the BiPAP until 4 in the morning. Blood gas is much improved. Patient does feel a little bit better. She feels like she is able to move her air in her lungs better although still short of breath. Denies any cough. Has a sore throat. Viral respiratory panel negative. Has occasional headache. Patient refusing the BiPAP. Having a difficult time keeping on. She seems to do well with on but does not last very long without it. Family discussion with the daughters who state they are POA together regarding goals of care. Patient has mentioned in the past that she is ready to pass away. CODE STATUS has been ambiguous as she was previously a DNR and it sounds like on admission she is a full code. Couple times while here she told nurses that is okay if she did not wake up. Family discussed her quality of life at home and how difficult daily life seems to be for her. After long discussion with the daughters regarding the need for intubation versus transfer to higher level of care versus limited measures -then went into the patient's room and had a name but brief conversation regarding goals of care and the options of aggressive management versus limited measures including comfort focus. The patient stated that she did not want to be transferred to [facility] and then additionally did not want to be intubated when I offer that option. I talked about comfort focus and letting nature take its course she confirmed that that was the route that she wanted to go. I reiterated the same questions and options with family present and again she indicated that she was ready to pass away. Family members have few other members that are coming in so we will leave her on BiPAP currently until family is all here and then we will transition her to comfort care only. pt moved to larger room for family, when family arrived the bipap was removed so she could visit with family. At 0408 on 05/30 pt with family present. - Additional Data Family: at bedside Attending physician: Melo Baca
[2019-05-30] MEDS: 0.9 % SODIUM CHLORIDE 10 ML SYRINGE IV SCH ×2 (08:37)
[2019-05-30] MEDS ORDERED: LISINOPRIL 20 MG TABLET PO SCH (09:00)
== END 2019-05-30 11:30 | disposition expired | DRG 190 ==
LOC: ED 05:11 → ICU 12:25 → MEDSUR 05-29 15:18
PROVIDERS: ADMIT Internal Medicine; ATTEND Internal Medicine